=== PATIENT | female | born 1950 | race Caucasian/White ===

== ENCOUNTER 2016-11-07 10:14 | Emergency (ER) | payer OTHER ==
[~2016-11-07] VITALS: Ht 149.9 cm; Wt 98.2 kg
[~2016-11-07 10:14] MED LIST: ASPEC81 PO; OXYC-57 PO; PRN10125 PO
[2016-11-07 10:24] VITALS: TEMP 36.9; Ht 149.9 cm; Wt 98.2 kg
--- NOTE | 2016-11-07 10:41 | EMERGENCY ROOM VISIT NOTE ---
History First contact with patient: 10:28 Chief Complaint: LACERATION/CUT (SUT/DERMABOND) Stated Complaint: FELL AND HIT BACK OF HEAD/BLEEDING Nursing Triage Summary: pt c/o head lac slipped on ice at 0930. denies any confused. denies any loc History of Present Illness The patient is a 66 year old female who presents to the Emergency Room with complaints of fall, head injury and laceration. The patient states that she was at home and slipped on the ice, falling backwards and striking the posterior aspect of her head. She denies any loss of consciousness. She denies any nausea or vomiting. She denies any neck pain. She denies any numbness, tingling or weakness in the upper extremities. She states she feels some tightness across both of her shoulders. She denies any other injuries. She is not certain if her tetanus is up-to-date. Review of Systems A 10 system review of systems was completed with positives and pertinent negatives listed in the HPI. Past Medical/Surgical History Patient denies Social History Smoking Status: Never Smoker Marital Status: Occupation Status: employed Current/Historical Medications Scheduled Aspirin (Aspirin Ec), 81 MG PO DAILY Allergies Coded Allergies: Codeine (Verified Allergy, Intermediate, RASH, 11/07/16) Physical Exam Vital Signs Date Time Temp Pulse Resp B/P Pulse Ox O2 Delivery O2 Flow Rate FiO2 11/07/16 12:18 62 20 186/98 96 Room Air 11/07/16 10:24 36.9 69 18 155/90 96 Room Air Physical Exam VITALS: Vitals are noted on the nurse's note and reviewed by myself. Vital signs stable. The patient is afebrile. GENERAL: This is a 66-year-old female, in no acute distress, nondiaphoretic, well-developed well-nourished. SKIN: The skin was without rashes, erythema, edema, or bruising. There is a 3 cm laceration to the posterior aspect of the scalp. There is moderate bleeding. The wound edges gape with traction. There is no tenting of the skin. Capillary reflex less than 2 seconds. HEAD: Normocephalic atraumatic. EARS: External auditory canals clear, tympanic membranes pearly conteh without erythema or effusion bilaterally. There is no hemotympanum. EYES: Pupils equal round and reactive to light and accommodation. Conjunctivae without injection, sclerae without icterus. Extraocular movements intact. NOSE: Patent, turbinates without inflammation or discharge. MOUTH: Mucous membranes moist. Tonsils are not enlarged. Pharynx without erythema or exudate. Uvula midline. Airway patent. Tongue does not deviate. NECK: Supple without nuchal rigidity. Cervical spine is nontender. No JVD. HEART: Regular rate and rhythm without murmurs gallops or rubs. LUNGS: Clear to auscultation bilaterally without wheezes, rales or rhonchi. No retractions or accessory muscle use. ABDOMEN: Positive bowel sounds x 4. Soft, nontender, without masses or organomegaly. MUSCULOSKELETAL: No muscle atrophy, erythema, or edema noted. Full range of motion in all extremities. Normal gait. Strength 5/5 throughout. NEURO: Patient was alert and oriented to person place and time. No focal neurological deficits. Medical Decision & Procedures ER Provider Diagnostic Interpretation: CT OF THE CERVICAL SPINE CLINICAL HISTORY: Neck pain status post trauma. History of subdural hematoma. COMPARISON STUDY: No previous studies for comparison. CT DOSE: 269.31 mGy.cm TECHNIQUE: CT scan of the cervical spine was performed from the skull base to the thoracic inlet. Images are reviewed in the axial, sagittal, and coronal planes. IV contrast was not administered for this examination. FINDINGS: The visualized portions of the lung apices reveal no evidence of pneumothorax. The prevertebral soft tissues are normal. No fractures or traumatic subluxations are visualized. There is a reversal of the normal cervical lordosis. There are advanced multilevel spondylitic changes. There is multilevel foraminal narrowing. There is suspected spinal stenosis at the C4-5, C5-6, and C6-7 levels. Mild anterior subluxation of C7 on T1 is felt to be arthritic IMPRESSION: No evidence of acute fracture or traumatic subluxation. CT OF THE HEAD WITHOUT CONTRAST CLINICAL HISTORY: Fall with head injury. COMPARISON STUDY: No previous studies for comparison. CT DOSE: 537.48 mGy.cm TECHNIQUE: Helical axial images of the head were obtained without IV contrast. Automated exposure control was utilized for the study. FINDINGS: There is a small amount of acute subdural hemorrhage along the right aspect of the falx. This measures 3 mm in thickness. There is no mass effect. There is also suspected trace layering blood along the right aspect of the tentorium. The ventricular system is normal. The basilar cisterns are patent. A 9 mm hypodensity within the right cerebellar hemisphere likely reflects an old lacunar infarct. There is a posterior scalp contusion with no calvarial fracture. IMPRESSION: 1. Small acute subdural hematoma along the falx as well as trace acute subdural hemorrhage layering along the right aspect of the tentorium. No mass effect. A follow-up head CT in 12 to 24 hours is recommended. 2. Posterior scalp contusion with no calvarial fracture. Laboratory Results 11/07/16 11:56 Red Blood Count 4.49, Mean Corpuscular Volume 94.2, Mean Corpuscular Hemoglobin 30.5, Mean Corpuscular Hemoglobin Concent 32.4, Mean Platelet Volume 11.1, Neutrophils (%) (Auto) 63.9, Lymphocytes (%) (Auto) 24.7, Monocytes (%) (Auto) 8.9, Eosinophils (%) (Auto) 1.7, Basophils (%) (Auto) 0.5, Neutrophils # (Auto) 4.86, Lymphocytes # (Auto) 1.88, Monocytes # (Auto) 0.68, Eosinophils # (Auto) 0.13, Basophils # (Auto) 0.04 Test 11/07/16 11:56 11/07/16 12:32 White Blood Count 7.61 K/uL (4.8-10.8) Red Blood Count 4.49 M/uL (4.2-5.4) Hemoglobin 13.7 g/dL (12.0-16.0) Hematocrit 42.3 % (37-47) Mean Corpuscular Volume 94.2 fL (80-100) Mean Corpuscular Hemoglobin 30.5 pg (25-34) Mean Corpuscular Hemoglobin Concent 32.4 g/dl (32-36) Platelet Count 389 K/uL (130-400) Mean Platelet Volume 11.1 fL (7.4-10.4) Neutrophils (%) (Auto) 63.9 % Lymphocytes (%) (Auto) 24.7 % Monocytes (%) (Auto) 8.9 % Eosinophils (%) (Auto) 1.7 % Basophils (%) (Auto) 0.5 % Neutrophils # (Auto) 4.86 K/uL (1.4-6.5) Lymphocytes # (Auto) 1.88 K/uL (1.2-3.4) Monocytes # (Auto) 0.68 K/uL (0.11-0.59) Eosinophils # (Auto) 0.13 K/uL (0-0.5) Basophils # (Auto) 0.04 K/uL (0-0.2) RDW Standard Deviation 47.0 fL (36.4-46.3) RDW Coefficient of Variation 13.7 % (11.5-14.5) Immature Granulocyte % (Auto) 0.3 % Immature Granulocyte # (Auto) 0.02 K/uL (0.00-0.02) Medications Administered Medications (Trade) Dose Ordered Sig/Tanvir Route Start Time Stop Time Status Last Admin Dose Admin Diphtheria/ Pertussis/Tetanus Vacc (Adacel Inj) 0.5 ml ONCE ONCE IM. 11/07/16 12:30 11/07/16 12:31 DC 11/07/16 12:25 0.5 ML Procedure A 3 cm laceration to the posterior scalp was repaired. Using sterile technique the wound was cleaned with Betadine. The area was sterilely draped. 3 ml of 1 % buffered lidocaine with epinephrine was used to anesthetize the skin. Once the patient was numb, the wound was copiously irrigated under pressure with sterile saline. The wound was explored and there were no deep structures such as tendons, bone, or ligaments present. The laceration was repaired using 6 elfego with the wound edges being well approximated. The patient tolerated the procedure well. The bleeding stopped. The area was cleaned with sterile saline . The patient was given a tetanus booster. ED Course The patient was seen and examined. Previous visits were reviewed. A laceration was repaired as above. She was given Adacel injection. CT imaging was as above and reveals a subdural hemorrhage. CT scan of the neck was negative for acute abnormality. The patient suffered a head injury and scalp laceration. Although largely asymptomatic with no significant headache, nausea, vomiting, blurry vision the patient does appear to have an acute subdural hemorrhage. The patient takes a baby aspirin daily but does not take any other anticoagulants. I [facility] and given that we do not have neurosurgery service and they recommended transfer. I discussed the case with Dr. Rick at [facility] ED who accepts the patient in transfer. I did contact the radiology department to have the images uploaded to the [facility] system and to have the images burned to a disc. Nursing staff was advised to have EMS contact [facility] [place] [place] 15 minutes prior to arrival to initiate trauma alert The patient was also seen and examined by who agrees with the assessment and treatment plan. Medical Decision The differential diagnosis includes intracranial bleeding, skull fracture, contusion, concussion, spine fracture, laceration, among others Impression Primary Impression: Subdural hemorrhage Additional Impressions: Fall Scalp laceration Departure Information Referrals No Doctor, Assigned (PCP) Patient Instructions [facility] Problem Qualifiers Additional Impressions: Fall Encounter type: initial encounter Qualified Codes: W19.XXXA - Unspecified fall, initial encounter Scalp laceration Encounter type: initial encounter Qualified Codes: S01.01XA - Laceration without foreign body of scalp, initial encounter
[2016-11-07] MEDS ORDERED: LIDOCAINE/EPINEPHRINE 1% 20 ML VIAL INFIL ONE (10:45)
[2016-11-07] MEDS ORDERED: ASPI81TA28 PO (10:46)
--- NOTE | 2016-11-07 11:19 | DIAGNOSTIC IMAGING REPORT ---
CT OF THE HEAD WITHOUT CONTRAST CLINICAL HISTORY: Fall with head injury. COMPARISON STUDY: No previous studies for comparison. CT DOSE: 537.48 mGy.cm TECHNIQUE: Helical axial images of the head were obtained without IV contrast. Automated exposure control was utilized for the study. FINDINGS: There is a small amount of acute subdural hemorrhage along the right aspect of the falx. This measures 3 mm in thickness. There is no mass effect. There is also suspected trace layering blood along the right aspect of the tentorium. The ventricular system is normal. The basilar cisterns are patent. A 9 mm hypodensity within the right cerebellar hemisphere likely reflects an old lacunar infarct. There is a posterior scalp contusion with no calvarial fracture. IMPRESSION: 1. Small acute subdural hematoma along the falx as well as trace acute subdural hemorrhage layering along the right aspect of the tentorium. No mass effect. A follow-up head CT in 12 to 24 hours is recommended. 2. Posterior scalp contusion with no calvarial fracture. Electronically signed by: Juanito Seth M.D. 11/07/2016 11:18 AM Dictated Date/Time: 11/07/2016 11:12 AM
--- NOTE | 2016-11-07 12:17 | DIAGNOSTIC IMAGING REPORT ---
CT OF THE CERVICAL SPINE CLINICAL HISTORY: Neck pain status post trauma. History of subdural hematoma. COMPARISON STUDY: No previous studies for comparison. CT DOSE: 269.31 mGy.cm TECHNIQUE: CT scan of the cervical spine was performed from the skull base to the thoracic inlet. Images are reviewed in the axial, sagittal, and coronal planes. IV contrast was not administered for this examination. FINDINGS: The visualized portions of the lung apices reveal no evidence of pneumothorax. The prevertebral soft tissues are normal. No fractures or traumatic subluxations are visualized. There is a reversal of the normal cervical lordosis. There are advanced multilevel spondylitic changes. There is multilevel foraminal narrowing. There is suspected spinal stenosis at the C4-5, C5-6, and C6-7 levels. Mild anterior subluxation of C7 on T1 is felt to be arthritic IMPRESSION: No evidence of acute fracture or traumatic subluxation. Electronically signed by: Marcelo Higuera M.D. 11/07/2016 12:16 PM Dictated Date/Time: 11/07/2016 12:12 PM
[2016-11-07] MEDS ORDERED: DIPHTHERIA/TETANUS/PERTUSSIS 0.5 ML SYR/VIAL IM. ONE (12:30)
[2016-11-07 12:33] LABS: BASO % 0.5 %; BASO ABS # 0.04 K/uL (0-0.2); COMPLETE YES; EOS % 1.7 %; HEMATOCRIT 42.3 % (37-47); IG% 0.3 %; LYMPH % 24.7 %; LYMPH ABS # 1.88 K/uL (1.2-3.4); MEAN CELL VOLUME 94.2 fL (80-100); MEAN CORPUSCULAR HEMOGLOBIN 30.5 pg (25-34); MEAN CORPUSCULAR HGB CONC 32.4 g/dl (32-36); MEAN PLATELET VOLUME 11.1 fL (7.4-10.4); MONO % 8.9 %; NEUT % 63.9 %; PLATELET COUNT 389 K/uL (130-400); RED BLOOD COUNT 4.49 M/uL (4.2-5.4); WHITE BLOOD COUNT 7.61 K/uL (4.8-10.8)
[2016-11-07 12:58] LABS: PROTHROMBIN TIME (PATIENT) 10.7 SECONDS (9.0-12.0)
[2016-11-07 13:10] LABS: BUN/CREATININE RATIO 21.4 (10-20); CALCIUM 9.1 mg/dl (8.5-10.1); CREATININE 0.63 mg/dl (0.60-1.20); POTASSIUM 3.9 mmol/L (3.5-5.1)
[2016-11-07 13:12] LABS: ALB/GLOB RATIO 1.2 (0.9-2)
[2016-11-07 13:16] VITALS: BP 169/82; PULSE 60; O2SAT 98
== END 2016-11-07 14:07 | disposition short-term general hospital (02) ==
LOC: C.EDB 10:15
DX: S06.5X0A Traumatic subdural hemorrhage without loss of consciousness, initial encounter (principal); S01.01XA Laceration without foreign body of scalp, initial encounter; W00.0XXA Fall on same level due to ice and snow, initial encounter; Z79.82 Long term (current) use of aspirin; Z23 Encounter for immunization

== ENCOUNTER 2024-11-13 20:52 | Inpatient (IN) ==
--- OUTSIDE RECORDS SUMMARY | 2024-11-13 20:55 | External Medical Summary | Summary of Care ---
Author Name Unknown Organization [facility] [address] [address] Phone [phone] Care Team Providers Care Club Room Attendant Name Role Phone Keny Ricco Mcgillkalli DO Primary Care Provider Encounter Details Date Type Department Care Team (Late st Contact Info) Description 10/30/2024 Orders Only PATIENT PORTAL DO NOT DELETE THIS DEPT USED BY [facility] [id number] Allergies Active Allergy Reactions Criticality Noted Date Comments Codeine Rash 11/07/2016 documented as of this encounter (statuses as of 10/30/2024) Medications Triamcinolone Acetonide 0.1 % External Cream (Aristocort)Indic ations:Seborrheic dermatitis Apply topically to affected area 2 times a day. To affected area. 160 g 5 02/04/2024 6:40 AM EDT 4 Active Albuterol Sulfate HFA 108 (90 Base) MCG/ACT Inhalation Aerosol Solution inhale 2 puffs by mouth every 4 hours as needed for wheezing 20.1 g 08/31/2024 7:55 AM EST 4 Active Apixaban 5 MG Oral Tablet (Eliquis)Indicati ons:Longstanding persistent atrial fibrillation (HCC) Take 1 Tablet by mouth in the morning and 1 Tablet before bedtime. 180 Tablet 3 5 Active Metoprolol Succinate ER 25 MG Oral Tablet Extended Release 24 Hour (toPROL XL)Indications:Lo ngstanding persistent atrial fibrillation (HCC) take one-half tablet by mouth daily in the morning 45 Tablet 3 10/28/2024 7:09 AM EST 5 Active documented as of this encounter (statuses as of 10/30/2024) Active Problems Problem Noted Date Diagnosed Date Intermittent asthma with rel iever use up to twice per week with acute exacerbation 10/26/2024 Age-related osteoporosis wit hout current pathological fracture 10/26/2024 Nonrheumatic aortic valve stenosis 02/03/2024 Longstanding persistent atrial fibrillation 03/2024 Left atrial enlargement 02/03/2024 Nonrheumatic aortic valve insufficiency 02/03/20 24 Intermittent asthma with rel iever use up to twice per week without complication 11/25/2018 Body mass index 40.0-44.9, adult 11/19/2018 documented as of this encounter (statuses as of 10/30/2024) Resolved Problems Problem Noted Date Diagnosed Date Resolved Date Morbid obesity with BMI of 40.0-44.9, adult 11/25/2019 11/25/2019 Prediabetes 12/07/2018 04/10/2023 Overview: Per Prediabetes protocol #1 Fall from standing 11/08/2016 0 Controlled substance agreement signed 11/07/2016 11/25/2019 Elevated blood pressure, situational 04/30/2012 10/26/2024 Obesity, morbid (more than 1 00 lbs over ideal weight or BMI > 40) 11/02/2010 12/08/2018 Obesity, morbid (more than 1 00 lbs over ideal weight or BMI > 40) 12/26/2009 11/02/2010 Overview (12/18/2015): Per Obesity Taxonomy ICD-10 update of inactive term HTN, goal below 140/90 11/14 EXT ASTHMA W-O STAT ASTH OBESITY, UNSPECIFIED 010 Overview (12/26/2009): Per Obesity Taxonomy Other disorder of menstruati on and other abnormal bleeding from female genital tract 11/25/2019 documented as of this encounter (statuses as of 10/30/2024) Immunizations Name Administration Dates Next Due COVID-19 mRNA, LNP-s, No Pre serve, 2-Dose Series (Pfizer) 12/14/2020,11/23/2020 COVID-19, mRNA, LNP-s, PF, B ooster, 100mcg/0.5mg (Moderna) 05/16/2022,09/30/2021 Covid-19, Mrna, Lnp-s, Pf, B ivalent, 30 Mcg, IM, 12 yrs and above (Pfizer) 10/14/2022 H1N1 2009 Influenza, IM 10/25/2009 Hepatitis B, 20+ yrs 03/11/2019 Pneumococcal Conjugate Vacc, 13 Valent (Prevnar) 03/22/2015 Pneumococcal Polysaccharide PPV23 (Pneumovax) 11/19/2016,06/19/2011 Seasonal Influenza Vac., MDV , IM, 0.5 mL (Fluzone) 07/08/2014,06/28/2013,06/19/2011,07/18,07/30/2008,07/31/2006 Seasonal Influenza Virus Vac cine, Unspecified Formulation 07/07/2021,06/30/2020,07/19/2019,07/15,08/07/2017,08/17/2016,07/08/2014 ,06/28/2013,06/19/2011,07/18/2009,09/2007,08/06/2007,07/31/2006, 5 Seasonal Influenza, High Dos e, Trivalent, PF, IM (Fluzone HD) 06/23/2024,08/17/2016 Seasonal Influenza, PF, 6 M & above, IM , (FluLaval or Fluzone) 06/30/2020,07/15/2018,08/07/2017 Seasonal Influenza, Quadriva lent Hd (Fluzone Hd) 06/09/2023,07/26/2022,07/07/2021 Seasonal Influenza, Trivalen t, Adjuvanted, 65+ YRS, PF, (Fluad) 07/19/2019 TDAP, Age 7 and older, IM (Adacel) 11/07/2016, Varicella Zoster Vaccine (Adult) 07/27/2009 Zoster Vaccine Recombinant (Shingrix) 02/08/2020 ,10/18/2019,07/27/2009 documented as of this encounter Social History Tobacco Use Types Packs/Day Years Used Date Smoking Tobacco: Former Cigarettes Q uit: 02/27/1982 Smokeless Tobacco: Never Alcohol Use Standard Drinks/Week Comments Yes 0 (1 standard drink = 0.6 oz pur e alcohol) rare PHQ-2 Answer Date Recorded PHQ Adult Total Score 1 10/26/2024 Hunger Vital Sign Answer Date Recorded Within the past 12 months, y ou worried that your food would run out before you got the money to buy more. Never true 10/15/19 24 Within the past 12 months, t he food you bought just didn't last and you didn't have money to get more. Never true 10/15/2023 Childcare Answer Date Recorded Do you feel overwhelmed with taking care of a child, family member or friend? No 10/15/2023 Does your family need help f inding childcare? (Household - for ages 0-17 years) Not on file 10/15/2023 Clothing Answer Date Recorded Have you been unable to get clothing when it was really needed? No 10/15/2023 Is your family able to get c lothes or diapers when needed? (Household - for ages 0-17 years) Not on file 10/15/2023 Personal Safety Answer Date Recorded Do you feel unsafe or have concerns for your saf ety? No 10/15/2023 Do you have concerns for you r family's safety? (Household - for ages 0-17 years) Not on file 10/15/2023 Utilities Answer Date Recorded Do you have trouble paying y our heating, water, or electric bill? No 10/15/2023 Is your family able to pay t he heat, water, or electric bill? (Household - for ages 0-17 years) Not on file 10/15/2023 Does your family have access to good internet? (Household - for ages 0-17 years) Not on file 10/15/2023 Employment Status Answer Date Recorded Are you unemployed or without regular income? No 10/15/2023 Does the household have a re gular source of income? (Household - for ages 0-17 years) Not on file 10/15/2023 Social Connections Answer Date Recorded How often do you feel lonely or isolated from th ose around you? Rarely 10/15/2023 Financial Resource Strain Answer Date R ecorded Do you have any trouble payi ng for your medications, or do you think you might in the future? No 10/15/2023 Does your family have troubl e paying for medicine? (Household - for ages 0-17 years) Not on file 10/15/2023 Transportation Needs Answer Date Record ed READ ONLY Do you have troubl e getting a ride to medical visits or work? Never True 10/15/2023 Does your family have a hard time getting a ride to doctors visits? (Household - for ages 0-17 years) Not on file 10/15/2023 Has lack of transportation k ept you from medical appointments, meetings, work, or from getting things needed for daily living? Check all that apply. (Adult - for ages 18 years and over) Not on file 10/15/2023 Do you (or your family) have trouble finding or paying for a ride (transportation)? (Household - for ages 0-17 years) Not on file 10/15/2023 Housing Stability Answer Date Recorded Do you currently live in a s helter or have no steady place to sleep at night? No 10/15/2023 READ ONLY Do you think you a re at risk of becoming homeless? No 10/15/2023 Does your family worry about paying for your home or becoming homeless? (Household - for ages 0-17 years) Not on file 0 10/15/2023 Are you homeless or worried that you might be in the future? (Adult - for ages 18 years and over) Not on file Are you (or your family) alan eless or worried that you might be in the future? (Household - for ages 0-17 years) Not on file Food Insecurity Answer Date Recorded Do you need food for this week? No 10/15/2023 Are you able to get enough f ood for your family? (Household - for ages 0-17 years) Not on file 10/15/2023 Does your family need food t his week? (Household - for ages 0-17 years) Not on file 10/15/2023 Do you always have enough fo od for your family? 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 Answer Date of Assessment Author No 11/08/2016 2:15 AM Luisa Leyva RN * Are you blind or do you have serious difficulty seeing, even when wearing glasses? Answer Date of Assessment Author No 11/08/2016 2:15 AM Luisa Leyva RN * Do you have serious difficulty walking or climbing stairs? (5 years old or older) Answer Date of Assessment Author No 11/08/2016 2:15 AM Luisa Leyva RN * Do you have difficulty dressing or bathing? (5 years old or older) Answer Date of Assessment Author No 11/08/2016 2:15 AM Luisa Leyva RN * Because of a physical, mental, or emotional condition, do you have difficulty doing errands alone such as visiting a doctors office or shopping? (15 years old or older) Answer Date of Assessment Author No 11/08/2016 2:15 AM Luisa Leyva RN documented as of this encounter Mental Status * Because of a physical, mental, or emotional condition, do you have serious difficulty concentrating, remembering, or making decisions? (5 years old or older) Answer Entry Date Author No 11/08/2016 2:15 AM Luisa Leyva RN documented in this encounter Plan of Treatment Upcoming Encounters Date Type Department Care Team (Late st Contact Info) Description 11/03/2024 11:00 AM EST Cardiac Studies Cardiac Studies, [facility] [address] [place] [address] 04/25/2025 1:00 PM EDT Office Visit Family Practice [facility] [address] [place] [id number] Luci Cisneros CRNP [address] [place] [id number] Scheduled Procedures Name Priority Associated Diagnoses Date/Ti me COLONOSCOPY FLEXIBLE PROXIMA L DIAGNOSTIC Recall Encounter for screening colonoscopy Health Maintenance Due Date Last Done Comments Hepatitis B Vaccine (2 of 3 - 19+ 3-dose series) 04/08/2019 03/11/2019 *SPIROMETRY ONCE FOR ASTHMA-ADULT 08/22/2022 Adult Wellness Visit 01/16/2024 01/15/2023 COVID-19 Vaccine ( season) 2024 10/14/2022, 05/16/2022, 09/30/2021, Additional history exists *BISPHONATE OR OTHER ACCEPTABLE MEDICATION NEEDED FOR OSTEOPOROSIS (REFER TO SMARTSET #1146) 10/28/2024 Depression Screening 10/26/2025 10/26/2024 DXA Scan 10/20/2026 10/20/2024, 11/25/2016 DTap/Tdap Vaccines (3 - Td or Tdap) 11/07/2026 11/07/2016, 09/28/2008, 07/20/1998 Fecal Occult Blood Test Discontinued 10/19/2000 VITAMIN D LEVEL ONCE IN A LIFETIME-USE SMARTSET# 68619 Completed 03/22/2015 Pneumococcal Vaccine: 50+ Years Completed 11/19/2016, 03/22/2015, 06/19/2011 Colonoscopy Discontinued 11/26/2016, 10/31, 09/17/2006 Colorectal Cancer Screening Discontinued Zoster Vaccines Completed 02/08/2020, 09/30, 07/27/2009, Additional history exists Albumin/Creatinine Ratio Discontinued 024, 03/13/2023, 11/27/2020 Influenza Vaccine (FLU shot) Completed 06/23/2024, 06/23/2024, 06/09/2023, Additional history exists Cologuard Discontinued HPV (Gardasil) Vaccine Aged Out No lo nger eligible based on patient's age to complete this topic MENINGOCOCCAL (MENACTRA/MENVEO) Aged Out No longer eligible based on patient's age to complete this topic Sigmoidoscopy Discontinued documented as of this encounter Medical Devices Not on filedocumented as of this encounter Advance Directives * Full Code (Latest Code Status on File) Date Activated Date Inactivated Comments 11/07/2016 3:59 PM 11/08/2016 9:29 PM Question Answer Comments Discussion of Advance Directives occurred with: Not Discussed Does the patient have a Living Will? No Does the patient have Health Care Power of Attor saima? No Care Teams Club Room Attendant Relationship Specialty Start Date End Date Ricco Bustillo DO [address] [place] [address] PCP - General Family Medicine 07/15/18 documented as of this encounter
--- OUTSIDE RECORDS SUMMARY | 2024-11-13 20:55 | External Medical Summary ---
Author Name Unknown Address Unknown Organization [id number]:[facility] - [address] [place] [address] Laboratory Report Ordering Provider Test Date Status EMORY SANABRIA 11/03/2024 10:41:37 Final Observation Date Value Abnormality Reference (Units ) Status WBC, Total 11/03/2024 10:41:37 5.83 4.00-10.8 0 (K/uL) Final RBC 11/03/2024 10:41:37 4.45 3.85-5.15 (M/uL) Final Hemoglobin 11/03/2024 10:41:37 13.8 12.0-15.3 (g/dL) Final HCT 11/03/2024 10:41:37 43.9 36.0-45.2 (%) Final MCV 11/03/2024 10:41:37 98.7 81.5-97.5 (fL) Final MCH 11/03/2024 10:41:37 31.0 27.0-34.0 (pg) Final MCHC 11/03/2024 10:41:37 31.4 32.0-36.0 (g/dL) Final RDW 11/03/2024 10:41:37 13.4 11.5-15.5 (%) Final Platelets 11/03/2024 10:41:37 308 140-400 (K /uL) Final MPV 11/03/2024 10:41:37 10.8 6.6-11.1 ( fL) Final Performing Location [facility] - [address] [place] [address]
--- OUTSIDE RECORDS SUMMARY | 2024-11-13 20:55 | External Medical Summary ---
Author Name Unknown Address Unknown Organization [id number]:[facility] - [address] [place] [address] Laboratory Report Ordering Provider Test Date Status EMORY SANABRIA 11/03/2024 10:41:37 Final Observation Date Value Abnormality Reference (Units ) Status SYNC LEUKOCYTES IN BLOOD BY AUTOMATED COUNT 11/03/2024 10:41:37 5.83 4.00-10.80 (K/uL) Final Segs 11/03/2024 10:41:37 63.4 40.0-75.0 (%) Final Lymphs % 11/03/2024 10:41:37 23.7 18.0-42.0 (%) Final Monos 11/03/2024 10:41:37 9.8 1.0-11.0 (%) Final Eosinophils 11/03/2024 10:41:37 2.6 0.0-6.0 (%) Final Basos 11/03/2024 10:41:37 0.5 0.0-2.0 (%) Final Absolute Segs 11/03/2024 10:41:37 3.70 1.80-7.70 (K/uL) Final Lymphs, absolute 11/03/2024 10:41:37 1.38 1.00-4.80 (K/ul) Final Monos, Abs 11/03/2024 10:41:37 0.57 0.00-1.10 (K/uL) Final Eos, Abs 11/03/2024 10:41:37 0.15 0.00-0.70 (K/uL) Final Basos, Abs 11/03/2024 10:41:37 0.03 0.00-0.20 (K/uL) Final Performing Location [facility] - [address] [place] [address]
--- OUTSIDE RECORDS SUMMARY | 2024-11-13 20:55 | External Medical Summary ---
Author Name Unknown Address Unknown Organization [id number]:[facility] - [address] [facility] [address] Laboratory Report Ordering Provider Test Date Status EMORY SANABRIA 11/03/2024 10:41:37 Final Observation Date Value Abnormality Reference (Units ) Status Triglyceride 11/03/2024 10:41:37 109 <=174 ( mg/dL) Final Triglyceride Reference Range s (mg/dL):
<150 Acceptable
150-174 Borderline high
175-499 High
>=500 Very high Cholesterol 11/03/2024 10:41:37 185 <200 (mg /dL) Final Total Cholesterol Reference Ranges (mg/dL):
<200 Desirable
200-239 Borderline high
>=240 High HDL 11/03/2024 10:41:37 69 >49 (mg/dL ) Final HDL Cholesterol Reference Ra nges (mg/dL):
>=60 High (Desirable)
<50 Low (Undesirable) For Females
<40 Low (Undesirable) For Males NON-HDL CHOLESTEROL 11/03/2024 10:41:37 116 <=159 (mg/dL) Final Non-HDL Cholesterol Referenc e Range (mg/dL):
<100 Target level for high risk ASCVD patient
<130 Optimal for general population
130-159 Near optimal for general population
160-189 Borderline High
190-219 High
>=220 Very High LDL, (calculated) 11/03/2024 10:41:37 94 <= 129 (mg/dL) Final LDL Cholesterol Reference Ra nges (mg/dL):
<70 Target level for high risk ASCVD patient
<100 Optimal for general population
100-129 Near optimal for general population
130-159 Borderline high
160-189 High
>=190 Very high Performing Location [facility] - [address] [facility] [address]
--- OUTSIDE RECORDS SUMMARY | 2024-11-13 20:55 | External Medical Summary | Summary of Care ---
Author Name Unknown Organization [facility] Address [address] [place] [address] Phone [phone] Care Team Providers Care Brick Tosser Name Role Phone Keny Ricco Mcgillkalli DO Primary Care Provider Reason for Visit * Reason Comments Outpatient Testing Encounter Details Date Type Department Care Team (Late st Contact Info) Description 11/03/2024 10:50 AM EST Laboratory Laboratory, [facility] [address] [place] [address] [facility] [address] [place] [address] Dyslipidemia, goal LDL below 130; Longstanding persistent atrial fibrillation (HCC) Allergies Active Allergy Reactions Criticality Noted Date Comments Codeine Rash 11/07/2016 documented as of this encounter (statuses as of 11/03/2024) Medications Triamcinolone Acetonide 0.1 % External Cream [...] 1 Tablet before bedtime. 180 Tablet 3 11/03/2024 10:33 AM EST 5 Active Metoprolol Succinate ER 25 MG Oral Tablet Extended Release 24 Hour (toPROL XL)Indications:Lo ngstanding persistent atrial fibrillation (HCC) take one-half tablet by mouth daily in the morning 45 Tablet 3 10/28/2024 7:09 AM EST 5 Active documented as of this encounter (statuses as of 11/03/2024) Active Problems Problem Noted Date Diagnosed Date [...] as of this encounter (statuses as of 11/03/2024) Resolved Problems Problem Noted Date Diagnosed Date [...] as of this encounter (statuses as of 11/03/2024) Immunizations Name Administration Dates Next Due COVID-19 [...] Care Team (Late st Contact Info) Description 04/25/2025 1:00 PM EDT Office Visit Family Practice [facility] [address] [address] Luci Cisneros CRNP [address] [place] [address] Pending Results Name Type Priority Associated Diagnoses Date /Time LIPID PANEL WITH DIRECT LDL IF TG IS HIGH Lab Routine Dyslipidemia, goal LDL below 130 11/03/2024 10:41 AM EST Scheduled Procedures Name Priority Associated Diagnoses Date/Ti [...] D LEVEL ONCE IN A LIFETIME-USE SMARTSET# [id number] Completed 03/22/2015 Pneumococcal Vaccine: 50+ Years Completed [...] Not on filedocumented as of this encounter Procedures Procedure Name Priority Date/Time Associated Diagnosis Comments DIFFERENTIAL, AUTOMATED Routine 11/03/2024 10:41 AM EST Longstanding persistent atrial fibrillation (HCC) COMPREHENSIVE METABOLIC PANEL Routine 11/03/2024 10:41 AM EST Dyslipidemia, goal LDL below 130 CBC Routine 11/03/2024 10:41 AM EST Longstanding persistent atrial fibrillation (HCC) CBC Routine 11/03/2024 10:41 AM EST Longstanding persistent atrial fibrillation (HCC) documented in this encounter Results * DIFFERENTIAL, AUTOMATED (11/03/2024 10:41 AM EST) WBC 5.83 4.00 - 10.80 K/uL 11/03/2024 10:52 AM EST [facility] Neutrophils % 63.4 40.0 - 75.0 % 11/03/2024 10:52 AM EST [facility] Lymphocytes % 23.7 18.0 - 42.0 % 11/03/2024 10:52 AM EST [facility] Monocytes % 9.8 1.0 - 11.0 % 11/03/2024 10:52 AM EST [facility] Eosinophils % 2.6 0.0 - 6.0 % 11/03/2024 10:52 AM EST [facility] Basophils % 0.5 0.0 - 2.0 % 11/03/2024 10:52 AM EST [facility] Absolute Neutrophils 3.70 1.80 - 7.70 K/uL 11/03/2024 10:52 AM EST [facility] Absolute Lymphocytes 1.38 1.00 - 4.80 K/ul 11/03/2024 10:52 AM EST [facility] Absolute Monocytes 0.57 0.00 - 1.10 K/uL 11/03/2024 10:52 AM EST [facility] Absolute Eosinophils 0.15 0.00 - 0.70 K/uL 11/03/2024 10:52 AM EST [facility] Absolute Basophils 0.03 0.00 - 0.20 K/uL 11/03/2024 10:52 AM EST [facility] Blood Venous blood specimen / Unknown Venipuncture / Unknown 11/03/2024 10:41 AM EST 11/03/2024 10:41 AM EST us Ricco Bustillo DO LAB BLOOD ORDERABLES Fi nal Result [facility] [address] [place] [address] * CBC (11/03/2024 10:41 AM EST) WBC 5.83 4.00 - 10.80 K/uL 11/03/2024 10:52 AM EST [facility] RBC 4.45 3.85 - 5.15 M/uL 11/03/2024 10:52 AM EST [facility] HGB 13.8 12.0 - 15.3 g/dL 11/03/2024 10:52 AM EST [facility] HCT 43.9 36.0 - 45.2 % 11/03/2024 10:52 AM EST [facility] MCV 98.7 81.5 - 97.5 fL 11/03/2024 10:52 AM EST [facility] MCH 31.0 27.0 - 34.0 pg 11/03/2024 10:52 AM EST [facility] MCHC 31.4 32.0 - 36.0 g/dL 11/03/2024 10:52 AM EST [facility] RDW 13.4 11.5 - 15.5 % 11/03/2024 10:52 AM EST [facility] PLT 308 140 - 400 K/uL 11/03/2024 10:52 AM EST [facility] MPV 10.8 6.6 - 11.1 fL 11/03/2024 10:52 AM EST [facility] Blood Venous blood specimen / Unknown Venipuncture / Unknown 11/03/2024 10:41 AM EST 11/03/2024 10:41 AM EST us Ricco Bustillo DO LAB BLOOD ORDERABLES Fi nal Result [facility] [facility] [address] * (ABNORMAL) COMPREHENSIVE METABOLIC PANEL (11/03/2024 10:41 AM EST) BUN 20 6 - 20 mg/dL 11/03/2024 12:38 PM EST [facility] CREATININE 0.8 0.5 - 1.0 mg/dL 11/03/2024 12:38 PM EST [facility] EGFR 75 >=60 mL/min 11/03/2024 12:38 PM EST [facility] Comment:eGFR is calculated b ased on the CKD-EPI 2020 equation. SODIUM 148(H) 135 - 146 mmol/L 11/03/2024 12:38 PM EST [facility] POTASSIUM 4.8 3.5 - 5.1 mmol/L 11/03/2024 12:38 PM EST [facility] CHLORIDE 108(H) 98 - 107 mmol/L 11/03/2024 12:38 PM EST [facility] CO2 29 22 - 32 mmol/L 11/03/2024 12:38 PM EST [facility] ANION GAP 11 7 - 15 mmol/L 11/03/2024 12:38 PM EST [facility] GLUCOSE 88 70 - 120 mg/dL 11/03/2024 12:38 PM EST [facility] Albumin 4.3 3.8 - 5.0 g/dL 11/03/2024 12:38 PM EST [facility] AST 15 10 - 35 U/L 11/03/2024 12:38 PM EST [facility] Alkaline Phosphatase 101 35 - 130 U/L 11/03/2024 12:38 PM EST [facility] Bilirubin, Total 0.7 <=1.2 mg/dL 11/03/2024 12:38 PM EST [facility] CALCIUM 10.2 8.4 - 10.2 mg/dL 11/03/2024 12:38 PM EST [facility] Protein 6.4 6.0 - 8.3 g/dL 11/03/2024 12:38 PM EST [facility] ALT 22 10 - 35 U/L 11/03/2024 12:38 PM EST [facility] Blood Venous blood specimen / Unknown Venipuncture / Unknown 11/03/2024 10:41 AM EST 11/03/2024 10:41 AM EST us Ricco Bustillo DO LAB BLOOD ORDERABLES Fi nal Result [facility] [place] [address] documented in this encounter Visit Diagnoses Diagnosis Dyslipidemia, goal LDL below 130 Other and unspecified hyperlipidemia Longstanding persistent atrial fibrillation (HCC) documented in this encounter Advance Directives * Full Code (Latest Code Status on File) Date Activated Date Inactivated Comments 11/07/2016 3:59 PM 11/08/2016 9:29 PM Question Answer Comments Discussion of Advance Directives occurred with: Not Discussed Does the patient have a Living Will? No Does the patient have Health Care Power of Attor saima? No Care Teams Brick Tosser Relationship Specialty Start Date End Date Ricco Bustillo DO [address] [place] [address] PCP - General Family Medicine 07/15/18 documented as of this encounter
--- OUTSIDE RECORDS SUMMARY | 2024-11-13 20:55 | External Medical Summary ---
Author Name Unknown Address Unknown Organization [id number]:[facility] [address] - [address] [place] [address] Laboratory Report Ordering Provider Test Date Status EMORY SANABRIA 11/03/2024 10:41:37 Final Observation Date Value Abnormality Reference (Units ) Status BUN 11/03/2024 10:41:37 20 6-20 (mg/dL) Final Creatinine 11/03/2024 10:41:37 0.8 0.5-1.0 (mg/dL) Final Glomerular filtration rate/1.73 sq M.predicted [Volume Rate/Area] in Serum, Plasma or Blood by Creatinine-based formula (CKD-EPI) 11/03/2024 10:41:37 75 >=60 (mL/min) Final eGFR is calculated based on the CKD-EPI 2020 equation. Sodium 11/03/2024 10:41:37 148 Above high normal 13 5-146 (mmol/L) Final Potassium 11/03/2024 10:41:37 4.8 3.5-5.1 (m mol/L) Final Cl 11/03/2024 10:41:37 108 Above high normal 98 -107 (mmol/L) Final CO2 11/03/2024 10:41:37 29 22-32 (mmo l/L) Final Anion gap 11/03/2024 10:41:37 11 7-15 (mmol /L) Final Glucose 11/03/2024 10:41:37 88 70-120 (mg /dL) Final Albumin 11/03/2024 10:41:37 4.3 3.8-5.0 (g /dL) Final AST (Aspartate aminotransferase) 11/03/2024 10:41:37 15 10-35 (U/L) Fin al Alk Phos 11/03/2024 10:41:37 101 35-130 (U/ L) Final Bilirubin, Total 11/03/2024 10:41:37 0.7 <=1 .2 (mg/dL) Final Calcium 11/03/2024 10:41:37 10.2 8.4-10.2 ( mg/dL) Final Protein 11/03/2024 10:41:37 6.4 6.0-8.3 (g /dL) Final ALT (Alanine aminotransferase) 11/03/2024 10:41:37 22 10-35 (U/L) Nuno rivera Performing Location [facility] [address] - [address] [facility] [address]
--- OUTSIDE RECORDS SUMMARY | 2024-11-13 20:56 | External Medical Summary | Summary of Care ---
Author Name Unknown Organization [facility] Address [address] [place] [address] Phone [phone] Care Team Providers Care Professor Of Apologetics Name Role Phone Keny Ricco Mcgillkalli Primary Care Provider Reason for Visit * Reason Onset Date Comments Medication Administration 06/23/2024 Flu an d/or Pneumo Inj Encounter Details Date Type Department Care Team (Late st Contact Info) Description 06/23/2024 3:15 PM EDT Immunization Cardiac Studies, [facility] [address] [place] [address] Need for prophylactic vaccination and inoculation against influenza* Allergies Active Allergy Reactions Criticality Noted Date Comments Codeine Rash 11/07/2016 documented as of this encounter (statuses as of 06/28/2024) Medications Medication Sig Dispensed Refills Start Date End Date Status Albuterol Sulfate HFA 108 (90 Base) MCG/ACT Inhalation Aerosol SolutionIndications: Intermittent asthma with reliever use up to twice per week with acute exacerbation Inhale 2 Puffs by mouth every 4 hours as needed for Wheezing. 54 g 1 02/01/2024 Active Triamcinolone Acetonide 0.1 % External Cream (Aristocort)Indicati ons:Seborrheic dermatitis Apply topically to affected area 2 times a day. To affected area. 160 g 5 02/01/2024 Active Apixaban 5 MG Oral Tablet (Eliquis)Indications :Longstanding persistent atrial fibrillation (HCC) Take 1 Tablet by mouth in the morning and 1 Tablet before bedtime. 180 Tablet 3 02/02/2024 Active Metoprolol Succinate ER 25 MG Oral Tablet Extended Release 24 Hour (toPROL XL)Indications:Longs tanding persistent atrial fibrillation (HCC) take one-half tablet by mouth daily in the morning 45 Tablet 3 02/02/2024 Active documented as of this encounter (statuses as of 06/28/2024) Active Problems Problem Noted Date Diagnosed Date Nonrheumatic aortic valve stenosis 02/03/2024 Longstanding persistent atrial fibrillation 03/2024 Left atrial enlargement 02/03/2024 Nonrheumatic aortic valve insufficiency 02/03/20 Intermittent asthma with rel iever use up to twice per week without complication 11/25/2018 Body mass index 40.0-44.9, adult 11/19/2018 Elevated blood pressure, situational 04/30/2012 documented as of this encounter (statuses as of 06/28/2024) Resolved Problems Problem Noted Date Diagnosed Date Resolved Date Morbid obesity with BMI of 40.0-44.9, adult 11/25/2019 11/25/2019 Prediabetes 12/07/2018 04/10/2023 Overview: Per Prediabetes protocol #1 Fall from standing 11/08/2016 0 Controlled substance agreement signed 11/07/2016 11/25/2019 Obesity, morbid (more than 1 00 lbs over ideal weight or BMI > 40) 11/02/2010 12/08/2018 Obesity, morbid (more than 1 00 lbs over ideal weight or BMI > 40) 12/26/2009 11/02/2010 Overview: Per Obesity Taxonomy ICD-10 update of inactive term HTN, goal below 140/90 11/14 EXT ASTHMA W-O STAT ASTH OBESITY, UNSPECIFIED 010 Overview: Per Obesity Taxonomy Other disorder of menstruati on and other abnormal bleeding from female genital tract 11/25/2019 documented as of this encounter (statuses as of 06/28/2024) Immunizations Name Administration Dates Next Due COVID-19 mRNA, LNP-s, No Pre serve, 2-Dose Series (Gekko) 12/14/2020,11/23/2020 COVID-19, mRNA, LNP-s, PF, B ooster, 100mcg/0.5mg (Moderna) 05/16/2022,09/30/2021 Covid-19, Mrna, Lnp-s, Pf, B ivalent, 30 Mcg, IM, 12 yrs and above (Pfizer) 10/14/2022 H1N1 2009 Influenza, IM 10/25/2009 Hepatitis B, 20+ yrs 03/11/2019 Pneumococcal Conjugate Vacc, 13 Valent (Prevnar) 03/22/2015 Pneumococcal Polysaccharide PPV23 (Pneumovax) 11/19/2016,06/19/2011 Seasonal Influenza Virus Vac cine, Unspecified Formulation 07/07/2021,06/30/2020,07/19/2019,07/15,08/07/2017,08/17/2016,07/08/2014 ,06/28/2013,06/19/2011,07/18/2009,09/2007,08/06/2007,07/31/2006, 5 Seasonal Influenza, High Dos e, Trivalent, PF, IM (Fluzone HD) 06/23/2024,08/17/2016 Seasonal Influenza, PF, 6 M & above, IM , (FluLaval or Fluzone) 06/30/2020,07/15/2018,08/07/2017 Seasonal Influenza, Quadriva lent Hd (Fluzone Hd) 06/09/2023,07/26/2022,07/07/2021 Seasonal Influenza, Trivalen t, (IIV3), with Preserv, (Fluzone) 07/08/2014,06/28/2013,06/19/2011,07/18,07/30/2008,07/31/2006 Seasonal Influenza, Trivalen t, Adjuvanted, 65+ YRS, [...] Date Recorded PHQ Adult Total Score 1 03/13/2023 Hunger Vital Sign Answer Date Recorded Within the past 12 months, y ou worried that your food would run out before you got the money to buy more. Never true 10/15/19 24 Within the past 12 months, t he food you bought just didn't last and you didn't have money to get more. Never true 10/15/2023 Sex and Gender Information Value Date Recorded Sex Assigned at Female 11/25/2019 1:40 PM EST Gender Identity Female 11/25/2019 1:40 PM EST Sexual Orientation Straight 11/25/2019 1: 40 PM EST Job Start Date Occupation Industry Not on file Not on file Not on file documented as of this encounter Functional Status Functional Status Response Date of Assess ment Are you deaf or do you have serious difficulty h earing? No 11/08/2016 Are you blind or do you have serious difficulty seeing, even when wearing glasses? No 11/08/2016 Do you have serious difficul ty walking or climbing stairs? (5 years old or older) No 11/08/2016 Do you have difficulty dress ing or bathing? (5 years old or older) No 11/08/2016 Because of a physical, menta l, or emotional condition, do you have difficulty doing errands alone such as visiting a doctor s office or shopping? (15 years old or older) No 11/08/19 17 Cognitive Status Response Date of Assessm ent Because of a physical, menta l, or emotional condition, do you have serious difficulty concentrating, remembering, or making decisions? (5 years old or older) No 11/08/2016 documented as of this encounter Progress Notes * Mariana Melvin CMA - 06/23/2024 3:44 PM EDT PRE - ADMINISTRATION DOCUMENTATION Are you experiencing any cold symptoms or fever? No Have you had Guillain-Goodridge Syndrome (an illness that causes paralysis) within the last 6 weeks? No Have you had the flu shot in the past? YES Have you ever had a reaction to the flu shot? No Mariana Melvin CMA, 06/23/2024 3:44 PM Immunization Administration Documentation Time Out Procedure Performed: Yes Patient Identified (Ask Name/Date of ): Yes Does the patient have a fever greater than 101 degrees today? No Patient allergic to latex? No VFC Stock: No Immunization(s) verified: Yes, Immunization Name: flu , VIS Sheet(s) given: Yes Verified Side and Site: Yes Verified Shot(s) with Parent(s)/Patient: Yes documented in this encounter Plan of Treatment Upcoming Encounters Date Type Department Care Team (Late st Contact Info) Description 08/05/2024 2:00 PM EST [facility] [address] [facility] [place] [address] 10/20/2024 9:00 AM EST [facility], [place] [address] [facility] [address] 10/26/2024 1:00 PM EST Office Visit Family Practice [facility] [address] [place] [address] Ricco Bustillo, [address] [place] [address] Scheduled Procedures Name Priority Associated Diagnoses Date/Ti me COLONOSCOPY FLEXIBLE PROXIMA L DIAGNOSTIC Recall Encounter for screening colonoscopy Health Maintenance Due Date Last Done Comments Hepatitis B Vaccine (2 of 3 - 19+ 3-dose series) 04/08/2019 03/11/2019 *SPIROMETRY ONCE FOR ASTHMA-ADULT 08/22/2022 DXA Scan 11/25/2023 11/25/2016 Adult Wellness Visit 01/16/2024 01/15/2023 Depression Screening 03/13/2024 03/13/2023 COVID-19 Vaccine ( season) 2024 10/14/2022, 05/16/2022, 09/30/2021, Additional history exists GFR 04/30/2025 04/30/2024, 02/27, 11/27/2021, Additional history exists DTap/Tdap Vaccines (3 - Td or Tdap) 11/07/2026 11/07/2016, 09/28/2008, 07/20/1998 Albumin/Creatinine Ratio 04/30/2027 024, 03/13/2023, 11/27/2020 Fecal Occult Blood Test Discontinued 10/19/2000 Pneumococcal Vaccine: 65+ Years Completed 11/19/2016, 03/22/2015, 06/19/2011 Colonoscopy Discontinued 11/26/2016, 10/31, 09/17/2006 Colorectal Cancer Screening Discontinued Zoster Vaccines Completed 02/08/2020, 09/30, 07/27/2009, Additional history exists Influenza Vaccine (FLU shot) Completed 06/23/2024, 06/09/2023, 07/26/2022, Additional history exists Cologuard Discontinued HPV (Gardasil) Vaccine Aged Out No lo nger eligible based on patient's age to complete this topic MENINGOCOCCAL (MENACTRA/MENVEO) Aged Out No longer eligible based on patient's age to complete this topic Sigmoidoscopy Discontinued documented as of this encounter Medical Devices Not on filedocumented as of this encounter Visit Diagnoses Diagnosis Need for prophylactic vaccination and inoculation against influenza- Primary documented in this encounter Advance Directives * Full Code (Latest Code Status on File) Date Activated Date Inactivated Comments 11/07/2016 3:59 PM 11/08/2016 9:29 PM Question Answer Comments Discussion of Advance Directives occurred with: Not Discussed Does the patient have a Living Will? No Does the patient have Health Care Power of Attor saima? No Care Teams Professor Of Apologetics Relationship Specialty Start Date End Date Ricco Bustillo DO [facility] [address] [place] [address] PCP - General Family Medicine 07/15/18 documented as of this encounter
--- OUTSIDE RECORDS SUMMARY | 2024-11-13 20:56 | External Medical Summary | Summary of Care ---
Author Name Unknown Organization [facility] Address [address] [place] [address] Phone [phone] Care Team Providers Care Support Group Manager Name Role Phone Keny Ricco Natalie Primary Care Provider Encounter Details Date Type Department Care Team (Late st Contact Info) Description 10/20/2024 Population Health External Data Unspecified Department Allergies Active Allergy Reactions Criticality Noted Date Comments Codeine Rash 11/07/2016 documented as of this encounter (statuses as of 10/20/2024) Medications Triamcinolone Acetonide 0.1 % External Cream (Aristocort)Indic ations:Seborrheic dermatitis Apply topically to affected area 2 times a day. To affected area. 160 g 5 02/04/2024 6:40 AM EDT 4 Active Apixaban 5 MG Oral Tablet (Eliquis)Indicati ons:Longstanding persistent atrial fibrillation (HCC) Take 1 Tablet by mouth in the morning and 1 Tablet before bedtime. 180 Tablet 3 08/02/2024 12:49 PM EST 4 Active Metoprolol Succinate ER 25 MG Oral Tablet Extended Release 24 Hour (toPROL XL)Indications:Lo ngstanding persistent atrial fibrillation (HCC) take one-half tablet by mouth daily in the morning 45 Tablet 3 07/30/2024 1:15 PM EDT 4 Active Albuterol Sulfate HFA 108 (90 Base) MCG/ACT Inhalation Aerosol Solution inhale 2 puffs by mouth every 4 hours as needed for wheezing 20.1 g 08/31/2024 7:55 AM EST 4 Active documented as of this encounter (statuses as of 10/20/2024) Active Problems Problem Noted Date Diagnosed Date Nonrheumatic aortic valve stenosis 02/03/2024 Longstanding persistent atrial fibrillation 03/2024 Left atrial enlargement 02/03/2024 Nonrheumatic aortic valve insufficiency 02/03/20 24 Intermittent asthma with rel iever use up to twice per week without complication 11/25/2018 Body mass index 40.0-44.9, adult 11/19/2018 Elevated blood pressure, situational 04/30/2012 documented as of this encounter (statuses as of 10/20/2024) Resolved Problems Problem Noted Date Diagnosed Date [...] as of this encounter (statuses as of 10/20/2024) Immunizations Name Administration Dates Next Due COVID-19 mRNA, LNP-s, No Pre serve, 2-Dose Series (Emotient) 12/14/2020,11/23/2020 COVID-19, mRNA, LNP-s, PF, B ooster, [...] of Assessment Author No 11/08/2016 2:15 AM Lusia Leyva RN * Do you have serious [...] Care Team (Late st Contact Info) Description 10/20/2024 3:00 PM EST Imaging Radiology [facility] [address] [id number] 10/26/2024 1:00 PM EST Office Visit Family Practice [facility] [address] [id number] Ricco Bustillo, [address] [id number] 11/03/2024 11:00 AM EST Cardiac Studies Cardiac Studies, [facility] [address] [id number] Scheduled Procedures Name Priority Associated Diagnoses Date/Ti [...] Occult Blood Test Discontinued 10/19/2000 Pneumococcal Vaccine: 50+ Years Completed 11/19/2016, 03/22/2015, 06/19/2011 Colonoscopy Discontinued 11/26/2016, 10/31, 09/17/2006 Colorectal Cancer Screening Discontinued Zoster Vaccines Completed 02/08/2020, 09/30, 07/27/2009, Additional history exists Influenza Vaccine (FLU shot) Completed 06/23/2024, 06/23/2024, [...] Power of Attor saima? No Care Teams Support Group Manager Relationship Specialty Start Date End Date Ricco Bustillo DO [address] [id number] PCP - General Family Medicine 07/15/18 documented as of this encounter
[2024-11-13 22:14] LABS: Albumin Level 4.7 gm/dl (3.4-5.0); Bilirubin,Total 1.2 mg/dl (0.2-1.0); Calcium 10.7 mg/dl (8.6-10.3); Potassium 4.1 mmol/L (3.5-5.1)
[2024-11-13 22:20] LABS: Albumin Globulin Ratio 1.3 (0.9-2); BUN Creatinine Ratio 28.4 (10-20); Globulin 3.6 gm/dl (2.5-4.0); Total Protein 8.3 gm/dl (6.0-8.3)
[2024-11-13 22:49] LABS: Hematocrit (blood only) 48.6 % (37.0-47.0); Hemoglobin 15.7 g/dl (12.0-16.0); Mean Corpuscular Hemoglobin 30.7 pg (25.0-34.0); Mean Corpuscular Hgb Conc 32.3 g/dL (32.0-36.0); Mean Corpuscular Volume 94.9 fL (80.0-100.0); Mean Platelet Volume 11.3 fL (9.4-12.4); Platelet Count 355 K/uL (130-400); RDW Coefficient of Variation 13.2 % (11.5-14.5); RDW Standard Deviation 46.6 fL (36.4-46.3); Red Blood Count 5.12 M/uL (4.20-5.40); White Blood Count 9.32 K/ul (4.8-10.8)
[2024-11-13 23:06] LABS: Magnesium 1.9 mg/dl (1.7-2.4)
[2024-11-13 23:12] LABS: Basophils # (auto) 0.03 K/uL (0.00-0.20); Basophils % (auto) 0.3 %; Immature Granulocytes # (auto) 0.04 K/uL (0.01-0.20); Immature Granulocytes % (auto) 0.4 %; Lymphocytes % (auto) 3.2 %; Monocytes # (auto) 0.28 K/uL (0.11-0.59); Neutrophils # (auto) 8.67 K/uL (1.40-6.50); Neutrophils % (auto) 93.1 %; Polychromasia 1+
[2024-11-13 23:14] LABS: Troponin I High Sensitivity 5.8 pg/ml (0-14)
[2024-11-13] MEDS: SODIUM CHLORIDE 0.9% 500 ML IV ONE (23:17)
[2024-11-13] MEDS: ONDANSETRON INJ 2 MG/ML 2 ML VIAL IV STA (23:17)
--- NOTE | 2024-11-13 23:22 | Emergency Department Note ---
History of Present Illness General Chief complaint: Diarrhea Stated complaint: DIARRHEA, VOMITING, Time Seen by Provider: 11/13/24 22:23 History of Present Illness This 74-year-old female on Eliquis for A-fib presents ER for nausea vomiting diarrhea for the past day. has been sick with similar symptoms in the [facility]pc. Patient denies chest pain, dyspnea, fever, chills, flulike illness. No recent antibiotics. No well water. Home Medications Medication Instructions Recorded Confirmed Type albuterol sulfate 90 mcg/actuation 1 inh inhalation DIRECTED PRN 11/19/23 11/14/24 History aerosol inhaler Shortness Of Breath Or Wheezing apixaban 5 mg tablet (Eliquis) 5 mg PO BID 01/13/24 11/14/24 History metoprolol tartrate 25 mg tablet 12.5 mg PO QAM 01/13/24 11/14/24 History Allergies Allergy/AdvReac Type Severity Reaction Status Date / Time codeine Allergy Intermediate RASH Verified 01/20/24 07:03 Past Med/Surg History Problem List (Updated 11/14/24 @ 01:23 by Calista García PA-C) Nausea, vomiting, and diarrhea (Acute) Acute UTI (Acute) Atrial fibrillation (Acute) new onset; reason for upcoming procedure Medical History (Updated 11/14/24 @ 01:23 by Calista García PA-C) Aortic valve stenosis Moderate per 2023 ECHO Seasonal allergies Asthma well controlled, rare use of rescue inhaler Surgical History Hx of colonoscopy Hx of cholecystectomy 2010 Social History Smoking Status: Former smoker Tobacco Type: Cigarettes Second Hand Exposure: No; Do You Dip or Chew Tobacco: No; Hx Alcohol Use: Yes Alcohol type: beer Hx Substance Use: No Preferred Language: Tongan Communication Ability: Effective Rn Rehabilitation Required: No Beliefs That Will Affect Care: None Current Living Situation: Family Feels Safe at Home: Yes Assistive Devices: Denture - Lower and Glasses Review of Systems A total of 10 systems reviewed and were otherwise negative Physical Exam Vital Signs Vital Signs - 24 hr 11/13/24 21:09 11/13/24 23:15 11/14/24 01:00 Temperature 36.5 C Temperature Source Temporal Artery Scan Pulse Rate 103 H Pulse Rate [Finger] 106 H 86 Respiratory Rate 20 18 18 Blood Pressure 130/98 Blood Pressure [Left Arm] 146/92 H 124/91 Blood Pressure Mean 108 Blood Pressure Mean [Left Arm] 110 102 Pulse Oximetry 96 96 97 Oxygen Delivery Method Room Air Room Air Room Air Sepsis Recent Fever Within 48 Hours No Sepsis New/Unexplained Change in Mental Status No Sepsis Action Taken by Nursing No Action Required VITALS: Vitals are noted on the nurse's note and reviewed by myself. Vital signs stable. GENERAL: Pleasant female, in no acute distress, nondiaphoretic, well-developed well-nourished. SKIN: Capillary reflex less than 2 seconds. HEENT: Normocephalic. PERRLA. EOMI. Nares patent. Mucous membranes moist. Neck is supple without nuchal rigidity. HEART: Regular rate and rhythm LUNGS: Clear to auscultation bilaterally without wheezes, rales or rhonchi. No retractions or accessory muscle use. ABDOMEN: Positive bowel sounds x 4. Normal tympanic percussion. Soft, mild diffuse tenderness, without masses or organomegaly. Uriostegui sign negative. No guarding or rebound tenderness. no CVA tenderness MUSCULOSKELETAL: No gross musculoskeletal defects. NEURO: Patient was alert and oriented to person place and time. No focal neurological deficits. Course Administered Medications Discontinued Medications Sodium Chloride (Nss) 500 mls @ 999 mls/hr IV .Q31M ONE Stop: 11/13/24 23:10 Last Infusion: 11/14/24 00:20 Dose: Infused Documented By: Admin: 11/13/24 23:17 Dose: 999 mls/hr Documented By: ISABEL Ceftriaxone Sodium (Rocephin) 2,000 mg in 50 mls @ 100 mls/hr IV NOW STA Stop: 11/14/24 01:51 Last Admin: 11/14/24 01:30 Dose: 100 mls/hr Documented By: ISABEL Ioversol (Optiray 320 100ml) 94 ml IV ONCE ONE Stop: 11/13/24 23:43 Last Admin: 11/13/24 23:42 Dose: 94 ml Documented By: SHAYLEE Ondansetron HCl (Ondansetron Inj 2 Mg/Ml 2 Ml Vial) 4 mg IV NOW STA Stop: 11/13/24 22:41 Last Admin: 11/13/24 23:17 Dose: 4 mg Documented By: ISABEL Medical Decision Making Medical Records Attestation: I reviewed the patient's medical records. Home Medications Current Medication List: was personally reviewed by me Laboratory Data Attestation: I reviewed the patient's lab results. 11/13/24 21:26 11/13/24 21:26 Lab Results 11/13/24 11/13/24 11/14/24 Range/Units 21:26 22:54 00:47 WBC 9.32 (4.8-10.8) K/ul RBC 5.12 (4.20-5.40) M/uL Hgb 15.7 (12.0-16.0) g/dl Hct 48.6 H (37.0-47.0) % MCV 94.9 (80.0-100.0) fL MCH 30.7 (25.0-34.0) pg MCHC 32.3 (32.0-36.0) g/dL RDW Std Deviation 46.6 H (36.4-46.3) fL RDW Coeff of Randy 13.2 (11.5-14.5) % Plt Count 355 (130-400) K/uL MPV 11.3 (9.4-12.4) fL Immature Gran % (Auto) 0.4 % Neut % (Auto) 93.1 % Lymph % (Auto) 3.2 % [place] % (Auto) 3.0 % Eos % (Auto) 0.0 % Baso % (Auto) 0.3 % Neut # (Auto) 8.67 H (1.40-6.50) K/uL Lymph # (Auto) 0.30 L (1.20-3.40) K/uL [place] # (Auto) 0.28 (0.11-0.59) K/uL Eos # (Auto) 0.00 (0.00-0.50) K/uL Baso # (Auto) 0.03 (0.00-0.20) K/uL Immature Gran # (Auto) 0.04 (0.01-0.20) K/uL Polychromasia 1+ Sodium 138 (136-145) mmol/L Potassium 4.1 (3.5-5.1) mmol/L Chloride 102 (98-107) mmol/L Carbon Dioxide 27 (21-32) mmol/L Anion Gap 9 (3-11) BUN 27 H (6-23) mg/dl Creatinine 0.95 (0.6-1.2) mg/dl Est Cr Clr Drug Dosing 39.0 ml/min eGFR 62.09 BUN/Creatinine Ratio 28.4 H (10-20) Glucose 158 H (70-99(Fasting)) mg/dl Calcium 10.7 H (8.6-10.3) mg/dl Magnesium 1.9 (1.7-2.4) mg/dl Total Bilirubin 1.2 H (0.2-1.0) mg/dl AST 21 (13-39) U/L ALT 37 (7-52) U/L Alkaline Phosphatase 100 (34-104) U/L Troponin I High Sens 5.8 (0-14) pg/ml Total Protein 8.3 (6.0-8.3) gm/dl Albumin 4.7 (3.4-5.0) gm/dl Globulin 3.6 (2.5-4.0) gm/dl Albumin/Globulin Ratio 1.3 (0.9-2) Lipase 17 (11-82) U/L Urine Color Yellow Urine Appearance Clear (Clear) Urine pH 5.0 (4.5-7.5) Ur Specific [place] > 1.045 H (1.000-1.030) Urine Protein 1+ H (Negative) Urine Glucose (UA) Negative (Negative) Urine Ketones Negative (Negative) Urine Blood 1+ H (Negative) Urine Nitrite Negative (Negative) Urine Bilirubin Negative (Negative) Urine Urobilinogen Negative (Negative) Ur Leukocyte Esterase Trace H (Negative) Urine WBC (Auto) 6-10 H (0-5) /hpf Urine RBC (Auto) 6-10 H (0-2) /hpf U Hyaline Cast (Auto) 3-5 H (0-2) /lpf U Epithel Cells (Auto) 3-5 H (0-2) /hpf Urine Bacteria (Auto) 4+ H (None Seen) Adenovirus (PCR) Not Detected (NotDetected) B. pertussis DNA (PCR) Not Detected (NotDetected) B.parapertussis DNA PCR Not Detected (NotDetected) C. pneumoniae DNA (PCR) Not Detected (NotDetected) Coronavirus OC43 (PCR) Not Detected (NotDetected) Coronavirus HKU1 (PCR) Not Detected (NotDetected) Coronavirus 229E (PCR) Not Detected (NotDetected) SARS-CoV-2 (PCR) Not Detected (NotDetected) Coronavirus NL63 (PCR) Not Detected (NotDetected) Human Metapneumovir PCR Not Detected (NotDetected) Influenza Type A (PCR) Not Detected (NotDetected) Influenza Type B (PCR) Not Detected (NotDetected) M. pneumoniae (PCR) Not Detected (NotDetected) Parainfluenza 1 (PCR) Not Detected (NotDetected) Parainfluenza 2 (PCR) Not Detected (NotDetected) Parainfluenza 3 (PCR) Not Detected (NotDetected) Parainfluenza 4 (PCR) Not Detected (NotDetected) RSV (PCR) Not Detected (NotDetected) Entero/Rhino (PCR) Not Detected (NotDetected) Imaging Data Attestation: I personally reviewed and interpreted this imaging study as follows: Radiologist's Impression: Abdomen/Pelvis CT 11/13/24 22:40 Exam(s): CT ABDOMEN + PELVIS With Contrast IV Amt: 94 cc's optiray 320 EXAM: CT Abdomen and Pelvis With Intravenous Contrast CLINICAL HISTORY: Abdominal Pain with vomiting and diarrhea. TECHNIQUE: Axial computed tomography images of the abdomen and pelvis with intravenous contrast. CTDI is 25.74 mGy and DLP is 1127 mGy-cm. Automated exposure control was utilized for the study. A dose lowering technique was utilized adhering to the principles of ALARA. CONTRAST: Patient received 94 cc's optiray 320 of IV contrast COMPARISON: MRCP 06/06/2011 FINDINGS: Lung bases: Unremarkable. No mass. No consolidation. ABDOMEN: Liver: Unremarkable. No mass. Gallbladder and bile ducts: Cholecystectomy. No ductal dilation. Pancreas: Unremarkable. No mass. No ductal dilation. Spleen: Unremarkable. No splenomegaly. Adrenals: Unremarkable. No mass. Kidneys and ureters: Unremarkable. No solid mass. No hydronephrosis. Stomach and bowel: The small bowel and colon are fluid-filled without obstruction. Diverticulosis. No mucosal thickening. PELVIS: Appendix: No findings to suggest acute appendicitis. Bladder: Unremarkable. No mass. Reproductive: Unremarkable as visualized. ABDOMEN and PELVIS: Intraperitoneal space: Unremarkable. No free air. No significant fluid collection. Bones/joints: There are degenerative changes of the spine. No acute fracture. No dislocation. There is grade 1 anterolisthesis of L5 on S1. Soft tissues: Unremarkable. Vasculature: Mild atherosclerotic disease. No abdominal aortic aneurysm. Lymph nodes: Unremarkable. No enlarged lymph nodes. IMPRESSION: 1. The small bowel and colon are fluid-filled without obstruction. This likely represent enterocolitis. 2. Diverticulosis. Electronically signed by: Akilah Lang MD 11/14/24 01:22 AM [facility] Narrative Prior records/ancillary studies reviewed. Triage Nursing notes reviewed. Additional history obtained from nursing The patient's history was concerning for nausea, vomiting, diarrhea, and abdominal pain. Differential diagnosis: Etiologies such as gastroenteritis, food borne illness, infections, appendicitis, diverticulitis, inflammatory bowel disease, obstruction, GI bleed, biliary pathology, as well as others were entertained. Physical examination findings: As above. Abdominal examination revealed mild tenderness. Vital signs reviewed and revealed stable. ER treatment provided: IV hydration NSS. Zofran, Rocephin was ordered for UTI On reassessment the patient felt better. Patient was tolerating p.o. intake. Diagnostics interpretation by me: EKG: Ordered for weakness EKG: Irregularly irregular with no acute ST-T wave changes, rate of 109. Impression A-fib rate of 109 independently interpreted by myself with no occasional PVC The labs Independently Interpreted by myself revealed no worrisome leukocytosis, stable H&H Hyperglycemia without DKA, normal magnesium, negative troponin Urine concerning for infection sent for culture. No prior culture for review Patient unable to provide a stool sample Imaging studies: Imaging was reviewed and read by radiology Consultation: A consultation was placed with the hospitalist. The case was discussed and diagnostics were reviewed. The patient was evaluated in the ER for further treatment. This appears to be consistent with vomiting and diarrhea most likely viral in etiology with UTI. Patient was quite weak. She did not feel comfortable going home. She lives by herself. She was started on antibiotics. No recent culture for review. She was hydrated as above. Medicine was consulted case is discussed. She will be admitted to the medical service. By the evaluation outlined above emergent etiologies such as appendicitis, diverticulitis, obstruction, cardiac sources, mesenteric ischemia, aortic pathology, inflammatory bowel disease, renal colic, PUD, biliary pathology, as well as others were deemed relatively unlikely. The pt informed about the findings as listed above. All questions were answered and pleased with the treatment. The chart was completed utilizing [employer] Speech voice recognition software. Grammatical errors, random word insertions, pronoun errors, and incomplete sentences are an occassional consequence of this system due to software limitations, ambient noise, and hardware issues. Any formal questions or concerns about the content, text, or information contained within the body of this dictation should be directly addressed to the physician assistant facility manager for clarification. Impression & Plan Acute UTI, Nausea, vomiting, and diarrhea Discharge Plan Visit Data Chief Complaint: Diarrhea Stated Complaint: DIARRHEA, VOMITING, ED Provider: Facundo Brown ED Midlevel Provider: Calista García Discharge Problem: Acute UTI, Nausea, vomiting, and diarrhea Forms Stand Alone Forms: [facility] [place] [place] [employer] Prescriptions Prescriptions: No Action metoprolol tartrate 25 mg Tablet 12.5 mg PO QAM Eliquis 5 mg Tablet 5 mg PO BID albuterol sulfate 90 mcg/actuation Hfa Aerosol Inhaler 1 inh INHALATION DIRECTED PRN (Reason: Shortness Of Breath Or Wheezing) Referrals Referrals: Ricco Bustillo DO [Primary Care Provider] -
[2024-11-13] MEDS: OPTIRAY 320 100ml IV ONE (23:42)
[2024-11-13 23:55] LABS: Adenovirus PCR Not Detected (NotDetected); Bordetella parapertussis PCR Not Detected (NotDetected); Bordetella pertussis PCR Not Detected (NotDetected); Chlamydia pneumoniae PCR Not Detected (NotDetected); Coronavirus 229E PCR Not Detected (NotDetected); Coronavirus CoV-2 (COVID19)PCR Not Detected (NotDetected); Coronavirus HKU1 PCR Not Detected (NotDetected); Coronavirus NL63 PCR Not Detected (NotDetected); Coronavirus OC43PCR Not Detected (NotDetected); Human Metapneumovirus PCR Not Detected (NotDetected); Influenza A PCR Not Detected (NotDetected); Influenza B PCR Not Detected (NotDetected); Mycoplasma pneumoniae PCR Not Detected (NotDetected); Parainfluenza Virus 1 PCR Not Detected (NotDetected); Parainfluenza Virus 2 PCR Not Detected (NotDetected); Parainfluenza Virus 3 PCR Not Detected (NotDetected); Parainfluenza Virus 4 PCR Not Detected (NotDetected); Respiratory Syncytial VirusPCR Not Detected (NotDetected); Rhinovirus/Enterovirus PCR Not Detected (NotDetected)
[2024-11-14 01:12] LABS: Appearance Urine Clear (Clear); Bacteria Urine Automated 4+ (None Seen); Bilirubin Urine Negative (Negative); Blood Urine 1+ (Negative); Color Urine Yellow; Glucose Urine UA Negative (Negative); Ketones Urine Negative (Negative); Leukocyte Esterase Urine Trace (Negative); Nitrite Urine Negative (Negative); Protein Urine 1+ (Negative); Specific Gravity Urine > 1.045 (1.000-1.030); Urobilinogen Urine Negative (Negative)
--- NOTE | 2024-11-14 01:24 | CT Scan Report ---
Exam(s): CT ABDOMEN + PELVIS With Contrast IV Amt: 94 cc's optiray 320 EXAM: CT Abdomen and Pelvis With Intravenous Contrast CLINICAL HISTORY: Abdominal Pain with vomiting and diarrhea. TECHNIQUE: Axial computed tomography images of the abdomen and pelvis with intravenous contrast. CTDI is 25.74 mGy and DLP is 1127 mGy-cm. Automated exposure control was utilized for the study. A dose lowering technique was utilized adhering to the principles of ALARA. CONTRAST: Patient received 94 cc's optiray 320 of IV contrast COMPARISON: MRCP 06/06/2011 FINDINGS: Lung bases: Unremarkable. No mass. No consolidation. ABDOMEN: Liver: Unremarkable. No mass. Gallbladder and bile ducts: Cholecystectomy. No ductal dilation. Pancreas: Unremarkable. No mass. No ductal dilation. Spleen: Unremarkable. No splenomegaly. Adrenals: Unremarkable. No mass. Kidneys and ureters: Unremarkable. No solid mass. No hydronephrosis. Stomach and bowel: The small bowel and colon are fluid-filled without obstruction. Diverticulosis. No mucosal thickening. PELVIS: Appendix: No findings to suggest acute appendicitis. Bladder: Unremarkable. No mass. Reproductive: Unremarkable as visualized. ABDOMEN and PELVIS: Intraperitoneal space: Unremarkable. No free air. No significant fluid collection. Bones/joints: There are degenerative changes of the spine. No acute fracture. No dislocation. There is grade 1 anterolisthesis of L5 on S1. Soft tissues: Unremarkable. Vasculature: Mild atherosclerotic disease. No abdominal aortic aneurysm. Lymph nodes: Unremarkable. No enlarged lymph nodes. IMPRESSION: 1. The small bowel and colon are fluid-filled without obstruction. This likely represent enterocolitis. 2. Diverticulosis. Electronically signed by: Akilah Lang MD 11/14/24 01:22 AM
[2024-11-14] MEDS: cefTRIAXone SODIUM 2,000 MG/50 ML BAG IV STA (01:30)
--- NOTE | 2024-11-14 02:21 | Emergency Department Note ---
ED Visit Note I was consulted by the Advanced Practice Provider, Vanessa García PA-C. I personally made/approved the management plan and take responsibility for the patient management. I performed a substantive portion of the visit. This includes the aspects of: -MDM -I independently interpreted the following studies: CT imaging is consistent with an enterocolitis. No obstruction. .
--- NOTE | 2024-11-14 05:29 | History & Physical Report ---
Date of Service November 14, 2024 Assessment & Plan (1) Nausea, vomiting, and diarrhea: Plan: 74-year-old female with past medical history significant for intermittent asthma, nonrheumatic aortic valve stenosis, persistent atrial fibrillation, nonrheumatic aortic valve insufficiency, obesity, osteoporosis presents with nausea vomiting and diarrhea starting yesterday. Several episodes of vomiting and diarrhea. Denies any blood in the stools. No abdominal pain. No fevers. No chest pain. No shortness of breath. No cough. No headache. No runny nose or sore throat. Somewhat hard of hearing. Resting comfortably hemodynamically stable. Nausea vomiting and diarrhea CT scan showing enterocolitis Will follow stool studies Supportive care IV fluids Acute UTI On Rocephin Will follow cultures History of persistent atrial fibrillation On metoprolol and Eliquis Will monitor Abnormal EKG will repeat EKG Moderate aortic stenosis Moderate aortic regurgitation Monitor for volume overload History of asthma Albuterol as needed DVT prophylaxis Eliquis Disposition Medical floor Full code History of Present Illness Chief Complaint: Nausea vomiting diarrhea Primary Care Provider: Ricco Bustillo DO 74-year-old female with past medical history significant for intermittent asthma, nonrheumatic aortic valve stenosis, persistent atrial fibrillation, nonrheumatic aortic valve insufficiency, obesity, osteoporosis presents with nausea vomiting and diarrhea starting yesterday. Several episodes of vomiting and diarrhea. Denies any blood in the stools. No abdominal pain. No fevers. No chest pain. No shortness of breath. No cough. No headache. No runny nose or sore throat. Somewhat hard of hearing. Resting comfortably hemodynamically stable. Past med history. As mentioned above Past surgical history. Colonoscopy. Removal gallbladder exploration of duct for pancreatitis Social history. . Quit smoking 1981. Alcohol rarely. No drug use. Family history. Mother has dementia. Father had AK. Allergies Allergy/AdvReac Type Severity Reaction Status Date / Time codeine Allergy Intermediate RASH Verified 01/20/24 07:03 Home Medications Medication Instructions Recorded Confirmed Type albuterol sulfate 90 mcg/actuation 1 inh inhalation DIRECTED PRN 11/19/23 11/14/24 History aerosol inhaler Shortness Of Breath Or Wheezing apixaban 5 mg tablet (Eliquis) 5 mg PO BID 01/13/24 11/14/24 History metoprolol succinate 25 mg 12.5 mg PO DAILY 11/14/24 11/14/24 History tablet,extended release 24 hr Past Med/Surg History Problem List (Updated 11/14/24 @ 01:23 by Calista García PA-C) Nausea, vomiting, and diarrhea (Acute) Acute UTI (Acute) Atrial fibrillation (Acute) new onset; reason for upcoming procedure Medical History (Updated 11/14/24 @ 01:23 by Calista García PA-C) Aortic valve stenosis Moderate per 2023 ECHO Seasonal allergies Asthma well controlled, rare use of rescue inhaler Surgical History Hx of colonoscopy Hx of cholecystectomy 2010 Social History Smoking Status: Former smoker Tobacco Type: Cigarettes Second Hand Exposure: No; Do You Dip or Chew Tobacco: No; Hx Alcohol Use: Yes Alcohol type: beer Hx Substance Use: No Preferred Language: Bulgarian Communication Ability: Effective Referral Manager Required: No Beliefs That Will Affect Care: None Current Living Situation: Family Feels Safe at Home: Yes Assistive Devices: Denture - Lower and Glasses Review of Systems Review of Systems: All systems reviewed & are unremarkable except as noted in HPI & below Physical Exam Physical Exam: General-Not in distress Head- atraumatic Eyes- PERRL. ENT- oropharynx clear Neck- supple, no JVD. Lungs- clear to auscultation no wheezing or crackles Heart- regular rhythm; ESM, no gallop. Abdomen- normal bowel sounds, soft, nontender, no distension Extremities- no pretibial edema, no erythema seen Neuro- alert, oriented PERRL,no facial palsy; no dysarthria; moves extremities Results & Data Results & Data Vital Signs (Past 12 Hours) Vital Signs Temp Pulse Pulse Resp BP BP Pulse Ox 11/14/24 03:00 74 18 127/61 95 11/14/24 01:00 86 18 124/91 97 11/13/24 23:15 106 H 18 146/92 H 96 11/13/24 21:09 36.5 C 103 H 20 130/98 96 O2 Del Method 11/14/24 03:00 Room Air 11/14/24 01:00 Room Air 11/13/24 23:15 Room Air 11/13/24 21:09 Room Air Diagnostic Findings Laboratory Results WBC 9.32 K/ul (4.8-10.8) 11/13/24: RBC 5.12 M/uL (4.20-5.40) 11/13/24: Hgb 15.7 g/dl (12.0-16.0) 11/13/24: Hct 48.6 % (37.0-47.0) H 11/13/24: MCV 94.9 fL (80.0-100.0) 11/13/24: MCH 30.7 pg (25.0-34.0) 11/13/24: MCHC 32.3 g/dL (32.0-36.0) 11/13/24: RDW Std Deviation 46.6 fL (36.4-46.3) H 11/13/24: RDW Coeff of Randy 13.2 % (11.5-14.5) 11/13/24: Plt Count 355 K/uL (130-400) 11/13/24: MPV 11.3 fL (9.4-12.4) 11/13/24: Immature Gran % (Auto) 0.4 % 11/13/24: Neut % (Auto) 93.1 % 11/13/24: Lymph % (Auto) 3.2 % 11/13/24: [place] % (Auto) 3.0 % 11/13/24: Eos % (Auto) 0.0 % 11/13/24: Baso % (Auto) 0.3 % 11/13/24: Neut # (Auto) 8.67 K/uL (1.40-6.50) H 11/13/24: Lymph # (Auto) 0.30 K/uL (1.20-3.40) L 11/13/24: [place] # (Auto) 0.28 K/uL (0.11-0.59) 11/13/24: Eos # (Auto) 0.00 K/uL (0.00-0.50) 11/13/24: Baso # (Auto) 0.03 K/uL (0.00-0.20) 11/13/24 21: Immature Gran # (Auto) 0.04 K/uL (0.01-0.20) 11/13/24 21: Polychromasia 1+ 11/13/24 21: Sodium 138 mmol/L (136-145) 11/13/24 21: Potassium 4.1 mmol/L (3.5-5.1) 11/13/24: Chloride 102 mmol/L (98-107) 11/13/24: Carbon Dioxide 27 mmol/L (21-32) 11/13/24: Anion Gap 9 (3-11) 11/13/24: BUN 27 mg/dl (6-23) H 11/13/24: Creatinine 0.95 mg/dl (0.6-1.2) 11/13/24: Est Cr Clr Drug Dosing 39.0 ml/min 11/13/24: eGFR 62.09 11/13/24: BUN/Creatinine Ratio 28.4 (10-20) H 11/13/24 21: Glucose 158 mg/dl (70-99(Fasting)) H 11/13/24: Calcium 10.7 mg/dl (8.6-10.3) H 11/13/24: Magnesium 1.9 mg/dl (1.7-2.4) 11/13/24: Total Bilirubin 1.2 mg/dl (0.2-1.0) H 11/13/24: AST 21 U/L (13-39) 11/13/24: ALT 37 U/L (7-52) 11/13/24 21: Alkaline Phosphatase 100 U/L (34-104) 11/13/24: Troponin I High Sens 5.8 pg/ml (0-14) 11/13/24: Total Protein 8.3 gm/dl (6.0-8.3) 11/13/24: Albumin 4.7 gm/dl (3.4-5.0) 11/13/24: Globulin 3.6 gm/dl (2.5-4.0) 11/13/24: Albumin/Globulin Ratio 1.3 (0.9-2) 11/13/24 21:26 Lipase 17 U/L (11-82) 11/13/24 21:26 Urine Color Yellow 11/14/24 00:47 Urine Appearance Clear (Clear) 11/14/24 00:47 Urine pH 5.0 (4.5-7.5) 11/14/24 00:47 Ur Specific [place] > 1.045 (1.000-1.030) H 11/14/24 00:47 Urine Protein 1+ (Negative) H 11/14/24 00:47 Urine Glucose (UA) Negative (Negative) 11/14/24 00:47 Urine Ketones Negative (Negative) 11/14/24 00:47 Urine Blood 1+ (Negative) H 11/14/24 00:47 Urine Nitrite Negative (Negative) 11/14/24 00:47 Urine Bilirubin Negative (Negative) 11/14/24 00:47 Urine Urobilinogen Negative (Negative) 11/14/24 00:47 Ur Leukocyte Esterase Trace (Negative) H 11/14/24 00:47 Urine WBC (Auto) 6-10 /hpf (0-5) H 11/14/24 00:47 Urine RBC (Auto) 6-10 /hpf (0-2) H 11/14/24 00:47 U Hyaline Cast (Auto) 3-5 /lpf (0-2) H 11/14/24 00:47 U Epithel Cells (Auto) 3-5 /hpf (0-2) H 11/14/24 00:47 Urine Bacteria (Auto) 4+ (None Seen) H 11/14/24 00:47 Adenovirus (PCR) Not Detected (NotDetected) 11/13/24 22:54 B. pertussis DNA (PCR) Not Detected (NotDetected) 11/13/24 22:54 B.parapertussis DNA PCR Not Detected (NotDetected) 11/13/24 22:54 C. pneumoniae DNA (PCR) Not Detected (NotDetected) 11/13/24 22:54 Coronavirus OC43 (PCR) Not Detected (NotDetected) 11/13/24 22:54 Coronavirus HKU1 (PCR) Not Detected (NotDetected) 11/13/24 22:54 Coronavirus 229E (PCR) Not Detected (NotDetected) 11/13/24 22:54 SARS-CoV-2 (PCR) Not Detected (NotDetected) 11/13/24 22:54 Coronavirus NL63 (PCR) Not Detected (NotDetected) 11/13/24 22:54 Human Metapneumovir PCR Not Detected (NotDetected) 11/13/24 22:54 Influenza Type A (PCR) Not Detected (NotDetected) 11/13/24 22:54 Influenza Type B (PCR) Not Detected (NotDetected) 11/13/24 22:54 M. pneumoniae (PCR) Not Detected (NotDetected) 11/13/24 22:54 Parainfluenza 1 (PCR) Not Detected (NotDetected) 11/13/24 22:54 Parainfluenza 2 (PCR) Not Detected (NotDetected) 11/13/24 22:54 Parainfluenza 3 (PCR) Not Detected (NotDetected) 11/13/24 22:54 Parainfluenza 4 (PCR) Not Detected (NotDetected) 11/13/24 22:54 RSV (PCR) Not Detected (NotDetected) 11/13/24 22:54 Entero/Rhino (PCR) Not Detected (NotDetected) 11/13/24 22:54 Impressions Abdomen/Pelvis CT 11/13/24 22:40 Exam(s): CT ABDOMEN + PELVIS With Contrast IV Amt: 94 cc's optiray 320 EXAM: CT Abdomen and Pelvis With Intravenous Contrast CLINICAL HISTORY: Abdominal Pain with vomiting and diarrhea. TECHNIQUE: Axial computed tomography images of the abdomen and pelvis with intravenous contrast. CTDI is 25.74 mGy and DLP is 1127 mGy-cm. Automated exposure control was utilized for the study. A dose lowering technique was utilized adhering to the principles of ALARA. CONTRAST: Patient received 94 cc's optiray 320 of IV contrast COMPARISON: MRCP 06/06/2011 FINDINGS: Lung bases: Unremarkable. No mass. No consolidation. ABDOMEN: Liver: Unremarkable. No mass. Gallbladder and bile ducts: Cholecystectomy. No ductal dilation. Pancreas: Unremarkable. No mass. No ductal dilation. Spleen: Unremarkable. No splenomegaly. Adrenals: Unremarkable. No mass. Kidneys and ureters: Unremarkable. No solid mass. No hydronephrosis. Stomach and bowel: The small bowel and colon are fluid-filled without obstruction. Diverticulosis. No mucosal thickening. PELVIS: Appendix: No findings to suggest acute appendicitis. Bladder: Unremarkable. No mass. Reproductive: Unremarkable as visualized. ABDOMEN and PELVIS: Intraperitoneal space: Unremarkable. No free air. No significant fluid collection. Bones/joints: There are degenerative changes of the spine. No acute fracture. No dislocation. There is grade 1 anterolisthesis of L5 on S1. Soft tissues: Unremarkable. Vasculature: Mild atherosclerotic disease. No abdominal aortic aneurysm. Lymph nodes: Unremarkable. No enlarged lymph nodes. IMPRESSION: 1. The small bowel and colon are fluid-filled without obstruction. This likely represent enterocolitis. 2. Diverticulosis. Electronically signed by: Akilah Lang MD 11/14/24 01:22 AM ECG Additional Comments: ECG.. Accelerated junctional rhythm with PVCs at the rate of 109. ST and T abnormality lateral leads. QTc 406 Code Status & VTE Plan VTE Prophylaxis Plan VTE Prophylaxis will be ordered: Yes
[2024-11-14] MEDS ORDERED: ONDANSETRON INJ 2 MG/ML 2 ML VIAL IV PRN (10:09)
[2024-11-14] MEDS ORDERED: ALBUTEROL HFA 8 GM INHALER INH PRN (10:09)
[2024-11-14] MEDS ORDERED: ACETAMINOPHEN 325 MG TAB PO PRN (10:09)
[2024-11-14 11:05] LABS: Basophils # (auto) 0.01 K/uL (0.00-0.20); Basophils % (auto) 0.2 %; Hematocrit (blood only) 41.6 % (37.0-47.0); Hemoglobin 13.8 g/dl (12.0-16.0); Lymphocytes # (auto) 0.52 K/uL (1.20-3.40); Lymphocytes % (auto) 11.2 %; Mean Corpuscular Hemoglobin 31.2 pg (25.0-34.0); Mean Corpuscular Hgb Conc 33.2 g/dL (32.0-36.0); Mean Corpuscular Volume 94.1 fL (80.0-100.0); Mean Platelet Volume 10.8 fL (9.4-12.4); Monocytes # (auto) 0.54 K/uL (0.11-0.59); Monocytes % (auto) 11.6 %; Neutrophils # (auto) 3.59 K/uL (1.40-6.50); Platelet Count 262 K/uL (130-400); RDW Coefficient of Variation 13.2 % (11.5-14.5); RDW Standard Deviation 45.7 fL (36.4-46.3); Red Blood Count 4.42 M/uL (4.20-5.40); White Blood Count 4.66 K/ul (4.8-10.8)
[2024-11-14] MEDS: APIXABAN 5 MG TABLET PO SCH (11:10)
[2024-11-14] MEDS: METOPROLOL SUCC 25MG EXT REL TAB PO SCH (11:10)
[2024-11-14 11:14] LABS: BUN Creatinine Ratio 37.7 (10-20); Calcium 9.8 mg/dl (8.6-10.3); Creatinine Clr Calc Pharmacy 53.7 ml/min; Phosphorus 3.1 mg/dl (2.5-4.9); Potassium 4.1 mmol/L (3.5-5.1)
[2024-11-14 11:21] LABS: Troponin I High Sensitivity 7.8 pg/ml (0-14)
[2024-11-14] MEDS: D5W AND 1/2NSS 1,000 ML IV SCH (11:47)
--- NOTE | 2024-11-14 17:53 | Hospitalist Progress Note ---
Date of Service November 14, 2024 Assessment & Plan (1) Nausea, vomiting, and diarrhea: Plan: 74-year-old female with past medical history significant for intermittent asthma, nonrheumatic aortic valve stenosis, persistent atrial fibrillation, nonrheumatic aortic valve insufficiency, obesity, osteoporosis presents with nausea vomiting and diarrhea starting yesterday. Several episodes of vomiting and diarrhea. Denies any blood in the stools. No abdominal pain. No fevers. No chest pain. No shortness of breath. No cough. No headache. No runny nose or sore throat. Somewhat hard of hearing. Resting comfortably hemodynamically stable. Nausea vomiting and diarrhea likely enterocolitis --CT ABD:The small bowel and colon are fluid-filled without obstruction. This likely represent enterocolitis. Diverticulosis. Empirically on Rocephin Stool studies pending Advance diet as tolerated Accidental fall Denies any head trauma Fall precautions PT OT as able Suspected UTI Empirically on Rocephin as above Urine culture pending History of persistent atrial fibrillation On metoprolol and Eliquis monitor Abnormal EKG will repeat EKG Denies any chest pain, dyspnea, palpitations Moderate aortic stenosis Moderate aortic regurgitation Monitor for volume overload History of asthma Albuterol as needed DVT prophylaxis Eliquis CODE STATUS Full code Admission and Anticipated Discharge Date Admission Date: November 14, 2024 Subjective Patient is seen and examined at bedside Nausea, vomiting, diarrhea resolved this morning Denies any chest pain, dyspnea No other complaints Review of Systems Review of Systems: All systems reviewed & are unremarkable except as noted in Subjective Physical Exam Physical Exam: Physical Exam: Vitals signs as noted above General Appearance: Obese, no apparent distress Head: normocephalic, Atraumatic Eyes: normal inspection, EOMI Neck: supple, Trachea midline Respiratory/Chest: Normal breath sounds, CTA, No accessory muscle use Cardiovascular: S1, S2, + murmur Abdomen/GI:Soft, Non tender, Bowel sounds present Extremities/Musculoskeletal:normal inspection, no edema Neurologic/Psych:AAOX3, grossly no focal neurological deficits Skin: normal color, warm Results & Data Results & Data Vital Signs (Past 12 Hours) Vital Signs Temp Pulse Pulse Resp BP BP Pulse Ox 11/14/24 15:46 36.6 C 77 20 123/68 96 11/14/24 13:00 134/73 11/14/24 13:00 81 18 95 11/14/24 12:00 80 18 114/75 93 11/14/24 11:47 92 H 20 137/67 95 11/14/24 11:27 74 24 97 11/14/24 11:21 84 11/14/24 11:11 82 23 137/67 95 11/14/24 08:00 80 18 121/72 96 11/14/24 07:00 72 18 136/80 97 O2 Del Method 11/14/24 15:46 Room Air 11/14/24 13:00 11/14/24 13:00 11/14/24 12:00 11/14/24 11:47 Room Air 11/14/24 11:27 11/14/24 11:21 11/14/24 11:11 Room Air 11/14/24 08:00 Room Air 11/14/24 07:00 Room Air Laboratory Results Short CBC 11/13/24 11/14/24 Range/Units 21:26 10:39 WBC 9.32 4.66 L (4.8-10.8) K/ul Hgb 15.7 13.8 (12.0-16.0) g/dl Hct 48.6 H 41.6 (37.0-47.0) % Plt Count 355 262 (130-400) K/uL BMP 11/13/24 11/14/24 21:26 10:39 Sodium 138 139 Potassium 4.1 4.1 Chloride 102 105 Carbon Dioxide 27 28 BUN 27 H 26 H Creatinine 0.95 0.69 Glucose 158 H 89 Calcium 10.7 H 9.8 Liver Function 11/13/24 Range/Units 21:26 Total Bilirubin 1.2 H (0.2-1.0) mg/dl AST 21 (13-39) U/L ALT 37 (7-52) U/L Alkaline Phosphatase 100 (34-104) U/L Albumin 4.7 (3.4-5.0) gm/dl Urine 11/14/24 Range/Units 00:47 Urine Color Yellow Urine Appearance Clear (Clear) Urine pH 5.0 (4.5-7.5) Ur Specific [place] > 1.045 H (1.000-1.030) Urine Protein 1+ H (Negative) Urine Glucose (UA) Negative (Negative)
[2024-11-14] MEDS: cefTRIAXone SODIUM 2,000 MG/50 ML BAG IV SCH (22:17)
[2024-11-15 07:25] LABS: Hematocrit (blood only) 37.7 % (37.0-47.0); Hemoglobin 12.1 g/dl (12.0-16.0); Mean Corpuscular Hemoglobin 30.5 pg (25.0-34.0); Mean Corpuscular Hgb Conc 32.1 g/dL (32.0-36.0); Mean Platelet Volume 10.8 fL (9.4-12.4); Platelet Count 234 K/uL (130-400); RDW Coefficient of Variation 13.3 % (11.5-14.5); RDW Standard Deviation 46.6 fL (36.4-46.3); Red Blood Count 3.97 M/uL (4.20-5.40); White Blood Count 3.92 K/ul (4.8-10.8)
[2024-11-15 07:36] LABS: BUN Creatinine Ratio 28.3 (10-20); Calcium 8.7 mg/dl (8.6-10.3); Creatinine Clr Calc Pharmacy 61.7 ml/min; Magnesium 1.8 mg/dl (1.7-2.4); Potassium 3.4 mmol/L (3.5-5.1)
[2024-11-15] MEDS: POTASSIUM CHLORIDE CRTAB 20 MEQ TABCR PO ONE (09:58)
--- NOTE | 2024-11-15 12:51 | Electrocardiogram Report ---
Test Reason : Blood Pressure : */* mmHG Vent. Rate : 109 BPM Atrial Rate : * BPM P-R Int : * ms QRS Dur : 88 ms QT Int : 302 ms P-R-T Axes : * -27 113 degrees QTcB Int : 406 ms Atrial fibrillation Abnormal ECG When compared with ECG of 20-Jan-2024 07:21, Atrial fibrillation has replaced sinus rhythm T wave inversion now evident in Lateral leads Confirmed by Randy Ludwig ([id number]) on 11/15/2024 12:51:37 PM Referred By: REFERRED SELF Confirmed By: Randy Ludwig
--- NOTE | 2024-11-15 15:30 | Hospitalist Progress Note ---
Date of Service November 15, 2024 Assessment & Plan (1) Nausea, vomiting, and diarrhea: Plan: 74-year-old female with past medical history significant for intermittent asthma, nonrheumatic aortic valve stenosis, persistent atrial fibrillation, nonrheumatic aortic valve insufficiency, obesity, osteoporosis presents with nausea vomiting and diarrhea starting yesterday. Several episodes of vomiting and diarrhea. Denies any blood in the stools. No abdominal pain. No fevers. No chest pain. No shortness of breath. No cough. No headache. No runny nose or sore throat. Somewhat hard of hearing. Resting comfortably hemodynamically stable. Nausea vomiting and diarrhea likely enterocolitis --CT ABD:The small bowel and colon are fluid-filled without obstruction. This likely represent enterocolitis. Diverticulosis. Empirically on Rocephin Stool for C. difficile negative Stool PCR pending Tolerating regular diet Accidental fall Denies any head trauma Fall precautions PT OT as able Suspected UTI--less likely Empirically on Rocephin as above Urine culture 3 types of organisms, all high counts. History of persistent atrial fibrillation On metoprolol and Eliquis monitor Abnormal EKG will repeat EKG Denies any chest pain, dyspnea, palpitations Moderate aortic stenosis Moderate aortic regurgitation Monitor for volume overload History of asthma Albuterol as needed DVT prophylaxis Eliquis CODE STATUS Full code Admission and Anticipated Discharge Date Admission Date: November 14, 2024 Subjective Patient is seen and examined at bedside No recurrence of nausea, vomiting Diarrhea improving Tolerating current diet Denies any chest pain, dyspnea, abdominal pain Review of Systems Review of Systems: All systems reviewed & are unremarkable except as noted in Subjective Physical Exam Physical Exam: Physical Exam: Vitals signs as noted above General Appearance: Obese, no apparent distress Head: normocephalic, Atraumatic Eyes: normal inspection, EOMI Neck: supple, Trachea midline Respiratory/Chest: Normal breath sounds, CTA, No accessory muscle use Cardiovascular: S1, S2, + murmur Abdomen/GI:Soft, Non tender, Bowel sounds present Extremities/Musculoskeletal:normal inspection, no edema Neurologic/Psych:AAOX3, grossly no focal neurological deficits Skin: normal color, warm Results & Data Results & Data Vital Signs (Past 12 Hours) Vital Signs Temp Pulse Resp BP Pulse Ox O2 Del Method 11/15/24 07:49 36.7 C 59 L 18 128/86 98 Room Air Laboratory Results Short CBC 11/15/24 Range/Units 06:38 WBC 3.92 L (4.8-10.8) K/ul Hgb 12.1 (12.0-16.0) g/dl Hct 37.7 (37.0-47.0) % Plt Count 234 (130-400) K/uL BMP 11/15/24 06:38 Sodium 139 Potassium 3.4 L Chloride 105 Carbon Dioxide 29 BUN 17 Creatinine 0.60 Glucose 93 Calcium 8.7
[2024-11-15 15:56] LABS: Adenovirus F 40/41 PCR Not Detected (NotDetected); Astrovirus PCR Not Detected (NotDetected); Campylobacter PCR Not Detected (NotDetected); Cryptosporidium PCR Not Detected (NotDetected); Cyclospora cayetanensis PCR Not Detected (NotDetected); Entamoeba histolytica PCR Not Detected (NotDetected); Enteroaggregative E.coli(EAEC) Not Detected (NotDetected); Enteropathogenic E.coli (EPEC) Not Detected (NotDetected); Enterotoxigenic E.coli (ETEC) Not Detected (NotDetected); Giardia lamblia PCR Not Detected (NotDetected); Plesiomonas shigelloides PCR Not Detected (NotDetected); Rotavirus A PCR Not Detected (NotDetected); Salmonella PCR Not Detected (NotDetected); Sapovirus PCR Not Detected (NotDetected); Shiga-like Toxin E.coli (STEC) Not Detected (NotDetected); Shigella/Enteroinvasive E.coli Not Detected (NotDetected); Vibrio cholerae PCR Not Detected (NotDetected); Vibrio species PCR Not Detected (NotDetected); Yersinia enterocolitica PCR Not Detected (NotDetected)
[2024-11-15 16:18] LABS: Norovirus GI/GII PCR DETECTED (NotDetected)
[2024-11-15] MEDS: LACTATED RINGER'S 1,000 ML IV ONE (17:21)
[2024-11-15] MEDS: LOPERAMIDE HCL 2 MG CAP PO PRN (17:28)
[2024-11-15] MEDS: ADVANCED PROBIOTIC 625 MG CAPSULE PO SCH (17:50)
[2024-11-15 20:00] VITALS: RESP 16
[2024-11-16 07:27] VITALS: BP 151/97; PULSE 99; TEMP 98.6; O2SAT 96
[2024-11-16 08:28] LABS: BUN Creatinine Ratio 18.6 (10-20); Calcium 9.3 mg/dl (8.6-10.3); Creatinine Clr Calc Pharmacy 62.8 ml/min; Magnesium 1.8 mg/dl (1.7-2.4); Potassium 3.9 mmol/L (3.5-5.1)
--- NOTE | 2024-11-16 11:48 | Hospitalist Progress Note ---
Date of Service November 16, 2024 Assessment & Plan (1) Nausea, vomiting, and diarrhea: Plan: 74-year-old female with past medical history significant for intermittent asthma, nonrheumatic aortic valve stenosis, persistent atrial fibrillation, nonrheumatic aortic valve insufficiency, obesity, osteoporosis presents with nausea vomiting and diarrhea starting yesterday. Several episodes of vomiting and diarrhea. Denies any blood in the stools. No abdominal pain. No fevers. No chest pain. No shortness of breath. No cough. No headache. No runny nose or sore throat. Somewhat hard of hearing. Resting comfortably hemodynamically stable. Norovirus enterocolitis--POA --CT ABD:The small bowel and colon are fluid-filled without obstruction. This likely represent enterocolitis. Diverticulosis. Empirically on Rocephin--discontinue Stool for C. difficile negative Stool PCR: Norovirus Tolerating regular diet Received IV fluids Clinically improved Accidental fall Denies any head trauma Fall precautions PT OT evaluated: Recommend return home Suspected UTI--less likely Empirically received Rocephin Urine culture 3 types of organisms, all high counts. History of persistent atrial fibrillation On metoprolol and Eliquis monitor Abnormal EKG will repeat EKG Denies any chest pain, dyspnea, palpitations Moderate aortic stenosis Moderate aortic regurgitation Monitor for volume overload History of asthma Albuterol as needed DVT prophylaxis Eliquis CODE STATUS Full code Disposition Home Admission and Anticipated Discharge Date Admission Date: November 14, 2024 Subjective Patient is seen and examined at bedside States feeling well today Nausea, vomiting, diarrhea resolved Tolerating diet No new complaint Denies any chest pain, dyspnea, abdominal pain Plan to be discharged home today Review of Systems Review of Systems: All systems reviewed & are unremarkable except as noted in Subjective Physical Exam Physical Exam: Physical Exam: Vitals signs as noted above General Appearance: Obese, no apparent distress Head: normocephalic, Atraumatic Eyes: normal inspection, EOMI Neck: supple, Trachea midline Respiratory/Chest: Normal breath sounds, CTA, No accessory muscle use Cardiovascular: S1, S2, + murmur Abdomen/GI:Soft, Non tender, Bowel sounds present Extremities/Musculoskeletal:normal inspection, no edema Neurologic/Psych:AAOX3, grossly no focal neurological deficits Skin: normal color, warm Results & Data Results & Data Vital Signs (Past 12 Hours) Vital Signs Temp Pulse Resp BP Pulse Ox O2 Del Method 11/16/24 07:54 Room Air 11/16/24 07:19 37.0 C 99 H 16 151/97 H 96 Room Air Laboratory Results BMP 11/16/24 07:42 Sodium 139 Potassium 3.9 Chloride 106 Carbon Dioxide 26 BUN 11 Creatinine 0.59 L Glucose 86 Calcium 9.3
--- NOTE | 2024-11-16 12:03 | Discharge Summary ---
Date of Service November 16, 2024 Admission HPI Per Admitting Provider 74-year-old female with past medical history significant for intermittent asthma, nonrheumatic aortic valve stenosis, persistent atrial fibrillation, nonrheumatic aortic valve insufficiency, obesity, osteoporosis presents with nausea vomiting and diarrhea starting yesterday. Several episodes of vomiting and diarrhea. Denies any blood in the stools. No abdominal pain. No fevers. No chest pain. No shortness of breath. No cough. No headache. No runny nose or sore throat. Somewhat hard of hearing. Resting comfortably hemodynamically stable. Past med history. As mentioned above Past surgical history. Colonoscopy. Removal gallbladder exploration of duct for pancreatitis Social history. . Quit smoking 1981. Alcohol rarely. No drug use. Family history. Mother has dementia. Father had CT. Admission Exam Per Admitting Provider General-Not in distress Head- atraumatic Eyes- PERRL. ENT- oropharynx clear Neck- supple, no JVD. Lungs- clear to auscultation no wheezing or crackles Heart- regular rhythm; ESM, no gallop. Abdomen- normal bowel sounds, soft, nontender, no distension Extremities- no pretibial edema, no erythema seen Neuro- alert, oriented PERRL,no facial palsy; no dysarthria; moves extremities Principal Diagnosis Norovirus enterocolitis Discharge Data Allergies Allergy/AdvReac Type Severity Reaction Status Date / Time codeine Allergy Intermediate RASH Verified 01/20/24 07:03 Consultations 11/14/24 01:34 ED Decision to Admit Stat Procedures Performed Laboratory Results WBC 3.92 K/ul (4.8-10.8) L 11/15/24 06:38 RBC 3.97 M/uL (4.20-5.40) L 11/15/24 06:38 Hgb 12.1 g/dl (12.0-16.0) 11/15/24 06:38 Hct 37.7 % (37.0-47.0) 11/15/24 06:38 MCV 95.0 fL (80.0-100.0) 11/15/24 06:38 MCH 30.5 pg (25.0-34.0) 11/15/24 06:38 MCHC 32.1 g/dL (32.0-36.0) 11/15/24 06:38 RDW Std Deviation 46.6 fL (36.4-46.3) H 11/15/24 06:38 RDW Coeff of Randy 13.3 % (11.5-14.5) 11/15/24 06:38 Plt Count 234 K/uL (130-400) 11/15/24 06:38 MPV 10.8 fL (9.4-12.4) 11/15/24 06:38 Immature Gran % (Auto) 0.0 % 11/14/24 10:39 Neut % (Auto) 77.0 % 11/14/24 10:39 Lymph % (Auto) 11.2 % 11/14/24 10:39 [place]ne % (Auto) 11.6 % 11/14/24 10:39 Eos % (Auto) 0.0 % 11/14/24 10:39 Baso % (Auto) 0.2 % 11/14/24 10:39 Neut # (Auto) 3.59 K/uL (1.40-6.50) 11/14/24 10:39 Lymph # (Auto) 0.52 K/uL (1.20-3.40) L 11/14/24 10:39 Duchesne # (Auto) 0.54 K/uL (0.11-0.59) 11/14/24 10:39 Eos # (Auto) 0.00 K/uL (0.00-0.50) 11/14/24 10:39 Baso # (Auto) 0.01 K/uL (0.00-0.20) 11/14/24 10:39 Immature Gran # (Auto) 0.00 K/uL (0.01-0.20) L 11/14/24 10:39 Polychromasia 1+ 11/13/24 21:26 Sodium 139 mmol/L (136-145) 11/16/24 07:42 Potassium 3.9 mmol/L (3.5-5.1) 11/16/24 07:42 Chloride 106 mmol/L (98-107) 11/16/24 07:42 Carbon Dioxide 26 mmol/L (21-32) 11/16/24 07:42 Anion Gap 7 (3-11) 11/16/24 07:42 BUN 11 mg/dl (6-23) 11/16/24 07:42 Creatinine 0.59 mg/dl (0.6-1.2) L 11/16/24 07:42 Est Cr Clr Drug Dosing 62.8 ml/min 11/16/24 07:42 eGFR 93.34 11/16/24 07:42 BUN/Creatinine Ratio 18.6 (10-20) 11/16/24 07:42 Glucose 86 mg/dl (70-99(Fasting)) 11/16/24 07:42 Calcium 9.3 mg/dl (8.6-10.3) 11/16/24 07:42 Phosphorus 3.1 mg/dl (2.5-4.9) 11/14/24 10:39 Magnesium 1.8 mg/dl (1.7-2.4) 11/16/24 07:42 Total Bilirubin 1.2 mg/dl (0.2-1.0) H 11/13/24 21:26 AST 21 U/L (13-39) 11/13/24 21:26 ALT 37 U/L (7-52) 11/13/24 21:26 Alkaline Phosphatase 100 U/L (34-104) 11/13/24 21:26 Troponin I High Sens 7.8 pg/ml (0-14) 11/14/24 10:39 Total Protein 8.3 gm/dl (6.0-8.3) 11/13/24 21:26 Albumin 4.7 gm/dl (3.4-5.0) 11/13/24 21:26 Globulin 3.6 gm/dl (2.5-4.0) 11/13/24 21:26 Albumin/Globulin Ratio 1.3 (0.9-2) 11/13/24 21:26 Lipase 17 U/L (11-82) 11/13/24 21:26 Urine Color Yellow 11/14/24 00:47 Urine Appearance Clear (Clear) 11/14/24 00:47 Urine pH 5.0 (4.5-7.5) 11/14/24 00:47 Ur Specific [place] > 1.045 (1.000-1.030) H 11/14/24 00:47 Urine Protein 1+ (Negative) H 11/14/24 00:47 Urine Glucose (UA) Negative (Negative) 11/14/24 00:47 Urine Ketones Negative (Negative) 11/14/24 00:47 Urine Blood 1+ (Negative) H 11/14/24 00:47 Urine Nitrite Negative (Negative) 11/14/24 00:47 Urine Bilirubin Negative (Negative) 11/14/24 00:47 Urine Urobilinogen Negative (Negative) 11/14/24 00:47 Ur Leukocyte Esterase Trace (Negative) H 11/14/24 00:47 Urine WBC (Auto) 6-10 /hpf (0-5) H 11/14/24 00:47 Urine RBC (Auto) 6-10 /hpf (0-2) H 11/14/24 00:47 U Hyaline Cast (Auto) 3-5 /lpf (0-2) H 11/14/24 00:47 U Epithel Cells (Auto) 3-5 /hpf (0-2) H 11/14/24 00:47 Urine Bacteria (Auto) 4+ (None Seen) H 11/14/24 00:47 Stl C. cayetanensis PCR Not Detected (NotDetected) 11/15/24 Unknown Stool Rotavirus A PCR Not Detected (NotDetected) 11/15/24 Unknown Stl Adenov F 40/41 PCR Not Detected (NotDetected) 11/15/24 Unknown Stool Astrovirus (PCR) Not Detected (NotDetected) 11/15/24 Unknown Stool Campylobacter PCR Not Detected (NotDetected) 11/15/24 Unknown Stl C. diff Tox B Gene Negative Cdiff Gene (Neg) 11/15/24 Unknown Stool Cryptosporidium PCR Not Detected (NotDetected) 11/15/24 Unknown Stl E.coli Shiga Tox PCR Not Detected (NotDetected) 11/15/24 Unknown Stl Enterotoxigenic E PCR Not Detected (NotDetected) 11/15/24 Unknown Stool EPEC (PCR) Not Detected (NotDetected) 11/15/24 Unknown Stool EAEC (PCR) Not Detected (NotDetected) 11/15/24 Unknown Stl E. histolytica PCR Not Detected (NotDetected) 11/15/24 Unknown Stool Giardia Lamblia PCR Not Detected (NotDetected) 11/15/24 Unknown Stool Salmonella PCR Not Detected (NotDetected) 11/15/24 Unknown Stool Sapovirus (PCR) Not Detected (NotDetected) 11/15/24 Unknown Stl P. shigelloides PCR Not Detected (NotDetected) 11/15/24 Unknown Stl Shigella/EIEC PCR Not Detected (NotDetected) 11/15/[address].enterocolitica PCR Not Detected (NotDetected) 11/15/24 Unknown Stool Vibrio (PCR) Not Detected (NotDetected) 11/15/24 Unknown Stl Vibrio cholerae PCR Not Detected (NotDetected) 11/15/24 Unknown Stl Norovirus GI/GII PCR DETECTED (NotDetected) A* 11/15/24 Unknown Adenovirus (PCR) Not Detected (NotDetected) 11/13/24 22:54 B. pertussis DNA (PCR) Not Detected (NotDetected) 11/13/24 22:54 B.parapertussis DNA PCR Not Detected (NotDetected) 11/13/24 22:54 C. pneumoniae DNA (PCR) Not Detected (NotDetected) 11/13/24 22:54 Coronavirus OC43 (PCR) Not Detected (NotDetected) 11/13/24 22:54 Coronavirus HKU1 (PCR) Not Detected (NotDetected) 11/13/24 22:54 Coronavirus 229E (PCR) Not Detected (NotDetected) 11/13/24 22:54 SARS-CoV-2 (PCR) Not Detected (NotDetected) 11/13/24 22:54 Coronavirus NL63 (PCR) Not Detected (NotDetected) 11/13/24 22:54 Human Metapneumovir PCR Not Detected (NotDetected) 11/13/24 22:54 Influenza Type A (PCR) Not Detected (NotDetected) 11/13/24 22:54 Influenza Type B (PCR) Not Detected (NotDetected) 11/13/24 22:54 M. pneumoniae (PCR) Not Detected (NotDetected) 11/13/24 22:54 Parainfluenza 1 (PCR) Not Detected (NotDetected) 11/13/24 22:54 Parainfluenza 2 (PCR) Not Detected (NotDetected) 11/13/24 22:54 Parainfluenza 3 (PCR) Not Detected (NotDetected) 11/13/24 22:54 Parainfluenza 4 (PCR) Not Detected (NotDetected) 11/13/24 22:54 RSV (PCR) Not Detected (NotDetected) 11/13/24 22:54 Entero/Rhino (PCR) Not Detected (NotDetected) 11/13/24 22:54 Impressions Abdomen/Pelvis CT 11/13/24 22:40 Exam(s): CT ABDOMEN + PELVIS With Contrast IV Amt: 94 cc's optiray 320 EXAM: CT Abdomen and Pelvis With Intravenous Contrast CLINICAL HISTORY: Abdominal Pain with vomiting and diarrhea. TECHNIQUE: Axial computed tomography images of the abdomen and pelvis with intravenous contrast. CTDI is 25.74 mGy and DLP is 1127 mGy-cm. Automated exposure control was utilized for the study. A dose lowering technique was utilized adhering to the principles of ALARA. CONTRAST: Patient received 94 cc's optiray 320 of IV contrast COMPARISON: MRCP 06/06/2011 FINDINGS: Lung bases: Unremarkable. No mass. No consolidation. ABDOMEN: Liver: Unremarkable. No mass. Gallbladder and bile ducts: Cholecystectomy. No ductal dilation. Pancreas: Unremarkable. No mass. No ductal dilation. Spleen: Unremarkable. No splenomegaly. Adrenals: Unremarkable. No mass. Kidneys and ureters: Unremarkable. No solid mass. No hydronephrosis. Stomach and bowel: The small bowel and colon are fluid-filled without obstruction. Diverticulosis. No mucosal thickening. PELVIS: Appendix: No findings to suggest acute appendicitis. Bladder: Unremarkable. No mass. Reproductive: Unremarkable as visualized. ABDOMEN and PELVIS: Intraperitoneal space: Unremarkable. No free air. No significant fluid collection. Bones/joints: There are degenerative changes of the spine. No acute fracture. No dislocation. There is grade 1 anterolisthesis of L5 on S1. Soft tissues: Unremarkable. Vasculature: Mild atherosclerotic disease. No abdominal aortic aneurysm. Lymph nodes: Unremarkable. No enlarged lymph nodes. IMPRESSION: 1. The small bowel and colon are fluid-filled without obstruction. This likely represent enterocolitis. 2. Diverticulosis. Electronically signed by: Akilah Lang MD 11/14/24 01:22 AM Ordered Studies 11/13/24 22:40 CT Abd and Pelvis [CT abd pelvis IV con only] Stat Hospital Course (1) Nausea, vomiting, and diarrhea: 74-year-old female with past medical history significant for intermittent asthma, nonrheumatic aortic valve stenosis, persistent atrial fibrillation, nonrheumatic aortic valve insufficiency, obesity, osteoporosis presents with nausea vomiting and diarrhea starting yesterday. Several episodes of vomiting and diarrhea. Denies any blood in the stools. No abdominal pain. No fevers. No chest pain. No shortness of breath. No cough. No headache. No runny nose or sore throat. Somewhat hard of hearing. Resting comfortably hemodynamically stable. Norovirus enterocolitis--POA --CT ABD:The small bowel and colon are fluid-filled without obstruction. This likely represent enterocolitis. Diverticulosis. Empirically on Rocephin--discontinue Stool for C. difficile negative Stool PCR: Norovirus Tolerating regular diet Received IV fluids Clinically improved Accidental fall Denies any head trauma Fall precautions PT OT evaluated: Recommend return home Suspected UTI--less likely Empirically received Rocephin Urine culture 3 types of organisms, all high counts. History of persistent atrial fibrillation On metoprolol and Eliquis monitor Abnormal EKG will repeat EKG Denies any chest pain, dyspnea, palpitations Moderate aortic stenosis Moderate aortic regurgitation Monitor for volume overload History of asthma Albuterol as needed DVT prophylaxis Eliquis CODE STATUS Full code Disposition Home Total Time Total Time Spent Total Time Spent (In Minutes): 52 minutes Discharge Plan Discharge Items Patient Disposition: Home - Self-Care Reason For Visit: N/V, DIARRHEA, UTI Discharge Diagnosis: Norovirus enterocolitis Activity: Per Instructions section Exercise/Sports: Gradually increase as tolerated Non-emergency contact: Primary Care Provider Call non-emergency contact if: you have any medication questions, your symptoms worsen, your pain is concerning for you and you have a fever Follow-up/Referrals: Ricco Bustillo DO [Primary Care Provider] - (Date & Time 11/23/2024 2:20 PM Provider: Ricco Bustillo DO Family [facility] ) Diet: Heart Healthy Add Attending Provider Instructions: Follow-up with your primary care physician Dr. Ricco Bustillo on 11/23/2024 2:20 PM -- Keep yourself hydrated with increased oral fluids as advised. Seek immediate medical attention if your symptoms reoccur or worsen Please take all medications as instructed on discharge list below. Please call if you have any questions or problems. You can reach a [facility] hospitalist on duty at [facility] 24 hours a day by calling [phone] Pending Studies at Discharge: No Stand-Alone Forms: My [facility], Work/School Release, Smoking Cessation Medications and DC Order Prescriptions: New loperamide 2 mg Capsule 2 mg PO Q8H PRN (Reason: loose stool) Qty: 10 0RF Advanced Probiotic 625 mg (10 billion cell) Capsule 1 cap PO DAILY Qty: 10 0RF Continued Eliquis 5 mg Tablet 5 mg PO BID albuterol sulfate 90 mcg/actuation Hfa Aerosol Inhaler 1 inh INHALATION DIRECTED PRN (Reason: Shortness Of Breath Or Wheezing) metoprolol succinate 25 mg tablet extended release 24 hr 12.5 mg PO DAILY Discharge Orders: Discharge Order (Routine); Ordered 11/16/24 Ordered By: Pato Kulkarni Admission Data Admit Date/Time: 11/14/24 05:21 Attending Provider: Pato Kulkarni Admit Provider: Antoni Peralta Primary Care Provider: Ricco Bustillo Other Providers: Antoni Peralta
== END 2024-11-16 13:54 | disposition home or self-care (01) | DRG 392 ==
LOC: ED 20:52 → SUATTDRO 11-14 05:21 → EDINP 11-14 05:21 → 3W 11-14 10:10